=== PATIENT | male | born 1945 | race Caucasian/White ===

== ENCOUNTER 2017-10-05 08:46 | Inpatient (IN) ==
[2017-10-05] MEDS ORDERED: 0.9 % Sodium Chloride 1,000 ML IVC ONE ×2 (08:51→10:43)
--- NOTE | 2017-10-05 09:01 | Emergency Department Note ---
Disposition Clinical Impression: Hyponatremia, Hypochloremia, Lightheadedness, Weakness Acute kidney failure Qualifiers: Acute renal failure type: unspecified Qualified Code(s): N17.9 - Acute kidney failure, unspecified Disposition: Admitted As Inpatient Condition: Good Referrals: Thanh Babin DO [Primary Care Provider] - Forms: ED Satisfaction Letter Time of Disposition: 13:02 Nausea/Vomiting/Diarrhea HPI - General Chief complaint: ED Nausea/Vomiting/Diarrhea Stated complaint: dizziness, N/V Time Seen by Provider: 10/05/17 08:51 Nursing Notes Reviewed: Yes - History of Present Illness HPI Narrative: Mr. Reina, 71-year-old male, presents from home via EMS for evaluation of a 2 day history of nausea and vomiting (nonbilious, nonbloody). Patient has been unable to keep down any food or fluids x2d. Associated with lightheadedness onset yesterday morning, worse when standing. He has had subjective fevers. He was at home by himself and has had no sick contacts. Per EMS, orthostatics on seen were negative. Patient received 4 mg sublingual Zofran in route. Per patient this has improved his nausea. PMH: Hypertension, stent in left leg. No history of CAD, ACS, COPD. No history of CVA or TIA. Platelets: Aspirin 81 by mouth daily Anticoagulant: None ROS: Positive: As above Negative: Diarrhea, constipation, melena, hematochezia, chest pains, palpitations, dyspnea, diaphoresis, unusual back pain, falls. No chest pain, palpitations. - Related Data Home Medications Medication Instructions Recorded Confirmed Lisinopril [Zestril] 40 mg PO DAILY 08/16/17 10/05/17 Vit A/Vit C/Vit E/Zinc/Copper 1 tab PO DAILY 10/05/17 10/05/17 [Preservision Areds Tablet] Allergies Allergy/AdvReac Type Severity Reaction Status Date / Time acetaminophen [From Vicodin] AdvReac Nausea Verified 10/05/17 12:56 hydrocodone [From Vicodin] AdvReac Nausea Verified 10/05/17 12:56 rofecoxib [From Vioxx] AdvReac Nausea Verified 10/05/17 12:56 All systems ED: reviewed and negative except as stated. Review of Systems: As Per HPI Past Medical History - Past Medical History Medical history: Reports: non-contributory Surgical history: Reports: herniorrhaphy, orthopedic, other Psychiatric history: Reports: no psych history - Social History Smoking Status: Current every day smoker Smokeless Tobacco Status: No Alcohol use: Reports: none Drug use: Reports: none Physical Exam Vital Signs Reviewed General: Patient is alert, oriented, and in no acute distress. Head: atraumatic, normocephalic Eye: normal appearance, no scleral icterus, no conjunctival injection ENT: mucous membranes tacky, normal external ear exam Neck: normal inspection, trachea midline, full ROM Chest: normal inspection, symmetric chest rise Respiratory: Good respiratory effort. Bilateral breath sounds are clear without wheezing, crackles, or rhonchi. Cardiovascular: Regular rate and rhythm. No clicks, rubs, gallops, or murmors. Normal heart sounds. Abdomen: Scaphoid. Bowel sounds present normoactive x-4 quadrants. Abdomen is soft, nondistended, and nontender. No guarding or rebound. No organomegaly noted. Musculoskeletal: Spontaneously moving all extremities. Skin: warm, dry, intact. Neuro: Alert and oriented x4. Sensation light touch intact. Psych: Patient's affect is appropriate for situation. Course Course Narrative: EKG dated 10/05/12 at 08:53 interpreted as sinus rhythm with rate of 67. Normal intervals. Normal axis. Right bundle branch block. Nonspecific ST-T changes. Compared to previous dated 03/07/2013 showing no acute ischemic changes or comparison. 12:30 Patient was ambulated. He was symptomatic with light headedness upon sitting up to bedside. Without assistance on standing, he likely would have fallen. No change in HR during this evolution. The patient symptomatically has his nausea resolved, his lightheadedness continues. Lab work shows mild anemia. No previous comparisons for baseline. Given my initial suspicion for dehydration, suspected some hemoconcentration. He does have mild hyponatremia and hypochloremia. His serum osmolality is low which is not expected with dehydration. Additionally, he does have some acute kidney injury. Given that he continues to be lightheaded is not safe to go home , patient is agreement to admission for continued resuscitation. I discussed the patient be admitted to hospitalist, Dr. Corley, who accepts for continued evaluation and management. Vital Signs Temperature 97.9 F 10/05/17 08:50 Pulse Rate 66 10/05/17 08:50 Respiratory Rate 15 10/05/17 08:50 Blood Pressure 186/84 10/05/17 08:50 O2 Sat by Pulse Oximetry 97 10/05/17 08:50 Temperature 97.9 F 10/05/17 08:50 Pulse Rate 72 10/05/17 12:41 Respiratory Rate 18 10/05/17 11:41 Blood Pressure 164/74 10/05/17 12:41 O2 Sat by Pulse Oximetry 96 10/05/17 11:41 Oxygen Delivery Oxygen Delivery Room Air Nausea/Vomiting/Diarrhea - Lab Data Result diagrams: 10/05/17 09:01 10/05/17 09:01 Lab Results 10/05/17 10/05/17 10/05/17 Range/Units 09:01 09:01 10:40 WBC 7.1 (4.3-11.1) K/mcL RBC 3.37 L (4.19-5.50) M/mcL Hgb 11.8 L (12.9-16.9) g/dL Hct 32.7 L (37.5-50.1) % MCV 97.0 (83.0-100.0) fL MCH 35.0 H (28.0-33.3) pg MCHC 36.1 H (31.6-35.5) g/dL RDW 13.6 (11.5-14.5) % Plt Count 216 (140-400) K/mcL MPV 10.5 (9.4-12.4) fL Immature Gran % 0.3 (0-4) % Seg Neutrophils % 75.3 % Lymphocytes % 10.0 % Monocytes % 14.3 % Eosinophils % 0.0 % Basophils % 0.1 % Neutrophils # 5.4 (1.6-8.9) K/mcL Lymphocytes # 0.7 (0.6-4.6) K/mcL Monocytes # 1.0 (0.0-1.3) K/mcL Eosinophils # 0.0 (0.0-0.6) K/mcL Basophils # 0.0 (0.0-0.2) K/mcL Nucleated RBCs/100 WBC 0.3 H (0) /100 WBC Sodium 131 L (136-145) mEq/L Potassium 4.1 (3.5-5.1) mEq/L Chloride 94 L (98-107) mEq/L Carbon Dioxide 26 (23-29) mEq/L BUN 26 H (8-23) mg/dL Creatinine 1.46 H (0.70-1.30) mg/dL Est GFR ( Amer) 58 L (> 60) Est GFR (Non-Af Amer) 48 L (> 60) BUN/Creatinine Ratio 18 (6-26) Glucose 136 H (70-105) mg/dL Calculated Osmolality 279 L (280-300) Calcium 9.2 (8.6-10.3) mg/dL Total Bilirubin 0.9 (0.3-1.0) mg/dL Direct Bilirubin 0.3 H (0.0-0.2) mg/dL Indirect Bilirubin 0.6 (0.0-1.2) mg/dL AST 20 (13-39) Units/L ALT 12 (7-52) Units/L Alkaline Phosphatase 63 (34-104) Units/L Serum Total Protein 7.0 (6.4-8.9) g/dL Albumin 4.2 (3.5-5.7) g/dL Globulin 2.8 (2.4-3.5) g/dL Albumin/Globulin Ratio 1.5 (1.1-2.2) Lipase 66 (11-82) Units/L Urine Color Yellow (Yellow) Urine Clarity Clear (Clear) Urine pH 7.0 (5.0-8.0) pH Units Ur Specific [place] 1.017 (1.010-1.025) Urine Protein Trace (Neg-Trace) mg/dL Urine Glucose (UA) Normal (Normal) mg/dL Urine Ketones Trace H (Negative) mg/dL Urine Blood Negative (Negative) Urine Nitrite Negative (Negative) Urine Bilirubin Negative (Negative) Urine Urobilinogen Normal (Normal) mg/dL Ur Leukocyte Esterase Negative (Negative) Urine Microscopic RBC 0-3 (0-3) per hpf Urine Microscopic WBC 3-5 H (0-3) per hpf Urine Bacteria Few (None-Few) per hpf Ur Culture Indicated? NO (NO) Attestation Statement - Attestation Attestation: I, Zurdo Hill DO, examined this patient [id number] and my medical decision-making was reviewed with Dr. Natalio Santiago, Resident Physician. I agree with the documented findings, disposition and treatment plan as described except to the extent set forth below. Please see my progress notes for details. NIH Stroke Scale - Level of Consciousness LOC: Alert - LOC Questions LOC Questions: Answers both correctly - LOC Commands LOC Commands: Performs both correctly - Best Gaze Best Gaze: Normal - Visual Visual: No visual loss - Facial Palsy Facial Palsy: Normal - Motor Arms Motor Arm-Left: No drift for 10 seconds Motor Arm-Right: No drift for 10 seconds - Motor Legs Motor Leg-Left: No drift for 5 seconds Motor Leg-Right: No drift for 5 seconds - Limb Ataxia Limb Ataxia: Absent of affected limb too weak to perform exam - Sensory Sensory: Normal - Best Language Best Language: No aphasia - Dysarthria Dysarthria: Normal - Extinction and Inattention Extinction and Inattention: Normal - NIHSS Total Score NIHSS Total Score: 0
[2017-10-05 09:11] LABS: Basophils % 0.1 %; Hematocrit 32.7 % (37.5-50.1); Hemoglobin 11.8 g/dL (12.9-16.9); Immature Granulocytes % 0.3 % (0-4); Lymphocytes # 0.7 K/mcL (0.6-4.6); Mean Corpuscular HGB Conc 36.1 g/dL (31.6-35.5); Mean Platelet Volume 10.5 fL (9.4-12.4); Monocytes % 14.3 %; Neutrophils # 5.4 K/mcL (1.6-8.9); Nucleated Red Blood Cells 0.3 /100 WBC (0); Platelet Count 216 K/mcL (140-400); Red Blood Count 3.37 M/mcL (4.19-5.50); Red Cell Distribution Width 13.6 % (11.5-14.5); Segmented Neutrophils % 75.3 %
[2017-10-05 09:34] LABS: Albumin 4.2 g/dL (3.5-5.7); Albumin/Globulin Ratio 1.5 (1.1-2.2); Bilirubin,Direct 0.3 mg/dL (0.0-0.2); Bilirubin,Indirect 0.6 mg/dL (0.0-1.2); Bilirubin,Total 0.9 mg/dL (0.3-1.0); Calcium 9.2 mg/dL (8.6-10.3); Globulin 2.8 g/dL (2.4-3.5); Potassium 4.1 mEq/L (3.5-5.1)
[2017-10-05] MEDS ORDERED: Ondansetron 4 MG/2 ML VIAL IVP ONE (10:43)
[2017-10-05 10:51] LABS: Bilirubin,Urine Negative (Negative); Blood,Urine Negative (Negative); Clarity,Urine Clear (Clear); Color,Urine Yellow (Yellow); Glucose,Urine (UA) Normal (Normal); Ketones,Urine Trace mg/dL (Negative); Leukocyte Esterase,Urine Negative (Negative); Nitrite,Urine Negative (Negative); Protein,Urine Trace mg/dL (Neg-Trace); Specific Gravity,Urine 1.017 (1.010-1.025); Urobilinogen,Urine Normal (Normal)
[2017-10-05 11:12] LABS: RBC,Urine 0-3 per hpf (0-3)
[2017-10-05 11:13] LABS: Bacteria,Urine Few per hpf (None-Few)
--- NOTE | 2017-10-05 12:28 | Emergency Department Note ---
Disposition Clinical Impression: Hyponatremia, Hypochloremia, Lightheadedness, Weakness Acute kidney failure Qualifiers: Acute renal failure type: unspecified Qualified Code(s): N17.9 - Acute kidney failure, unspecified Disposition: Admitted As Inpatient Condition: Good Referrals: Thanh Babin DO [Primary Care Provider] - Forms: ED Satisfaction Letter Time of Disposition: 13:11 General Adult HPI - General Chief complaint: ED Nausea/Vomiting/Diarrhea Stated complaint: dizziness, N/V Time Seen by Provider: 10/05/17 08:51 Source: patient, family, EMS Limitations: no limitations - History of Present Illness Pain Scale: 0 - Related Data Home Medications Medication Instructions Recorded Confirmed Lisinopril [Zestril] 40 mg PO DAILY 08/16/17 10/05/17 Vit A/Vit C/Vit E/Zinc/Copper 1 tab PO DAILY 10/05/17 10/05/17 [Preservision Areds Tablet] Allergies Allergy/AdvReac Type Severity Reaction Status Date / Time acetaminophen [From Vicodin] AdvReac Nausea Verified 10/05/17 12:56 hydrocodone [From Vicodin] AdvReac Nausea Verified 10/05/17 12:56 rofecoxib [From Vioxx] AdvReac Nausea Verified 10/05/17 12:56 Past Medical History - Past Medical History Medical history: Reports: non-contributory Surgical history: Reports: herniorrhaphy, orthopedic, other Psychiatric history: Reports: no psych history - Social History Smoking Status: Current every day smoker Smokeless Tobacco Status: No Alcohol use: Reports: none Drug use: Reports: none Physical Exam - General Limitations: no limitations General appearance: alert, in no apparent distress Course Vital Signs Temperature 97.9 F 10/05/17 08:50 Pulse Rate 66 10/05/17 08:50 Respiratory Rate 15 10/05/17 08:50 Blood Pressure 186/84 10/05/17 08:50 O2 Sat by Pulse Oximetry 97 10/05/17 08:50 Temperature 97.9 F 10/05/17 08:50 Pulse Rate 72 10/05/17 12:41 Respiratory Rate 18 10/05/17 11:41 Blood Pressure 164/74 10/05/17 12:41 O2 Sat by Pulse Oximetry 96 10/05/17 11:41 Oxygen Delivery Oxygen Delivery Room Air Medical Decision Making - Lab Data Result diagrams: 10/05/17 09:01 10/05/17 09:01 Lab Results 10/05/17 10/05/17 10/05/17 Range/Units 09:01 09:01 10:40 WBC 7.1 (4.3-11.1) K/mcL RBC 3.37 L (4.19-5.50) M/mcL Hgb 11.8 L (12.9-16.9) g/dL Hct 32.7 L (37.5-50.1) % MCV 97.0 (83.0-100.0) fL MCH 35.0 H (28.0-33.3) pg MCHC 36.1 H (31.6-35.5) g/dL RDW 13.6 (11.5-14.5) % Plt Count 216 (140-400) K/mcL MPV 10.5 (9.4-12.4) fL Immature Gran % 0.3 (0-4) % Seg Neutrophils % 75.3 % Lymphocytes % 10.0 % Monocytes % 14.3 % Eosinophils % 0.0 % Basophils % 0.1 % Neutrophils # 5.4 (1.6-8.9) K/mcL Lymphocytes # 0.7 (0.6-4.6) K/mcL Monocytes # 1.0 (0.0-1.3) K/mcL Eosinophils # 0.0 (0.0-0.6) K/mcL Basophils # 0.0 (0.0-0.2) K/mcL Nucleated RBCs/100 WBC 0.3 H (0) /100 WBC Sodium 131 L (136-145) mEq/L Potassium 4.1 (3.5-5.1) mEq/L Chloride 94 L (98-107) mEq/L Carbon Dioxide 26 (23-29) mEq/L BUN 26 H (8-23) mg/dL Creatinine 1.46 H (0.70-1.30) mg/dL Est GFR ( Amer) 58 L (> 60) Est GFR (Non-Af Amer) 48 L (> 60) BUN/Creatinine Ratio 18 (6-26) Glucose 136 H (70-105) mg/dL Calculated Osmolality 279 L (280-300) Calcium 9.2 (8.6-10.3) mg/dL Total Bilirubin 0.9 (0.3-1.0) mg/dL Direct Bilirubin 0.3 H (0.0-0.2) mg/dL Indirect Bilirubin 0.6 (0.0-1.2) mg/dL AST 20 (13-39) Units/L ALT 12 (7-52) Units/L Alkaline Phosphatase 63 (34-104) Units/L Serum Total Protein 7.0 (6.4-8.9) g/dL Albumin 4.2 (3.5-5.7) g/dL Globulin 2.8 (2.4-3.5) g/dL Albumin/Globulin Ratio 1.5 (1.1-2.2) Lipase 66 (11-82) Units/L Urine Color Yellow (Yellow) Urine Clarity Clear (Clear) Urine pH 7.0 (5.0-8.0) pH Units Ur Specific [place] 1.017 (1.010-1.025) Urine Protein Trace (Neg-Trace) mg/dL Urine Glucose (UA) Normal (Normal) mg/dL Urine Ketones Trace H (Negative) mg/dL Urine Blood Negative (Negative) Urine Nitrite Negative (Negative) Urine Bilirubin Negative (Negative) Urine Urobilinogen Normal (Normal) mg/dL Ur Leukocyte Esterase Negative (Negative) Urine Microscopic RBC 0-3 (0-3) per hpf Urine Microscopic WBC 3-5 H (0-3) per hpf Urine Bacteria Few (None-Few) per hpf Ur Culture Indicated? NO (NO) Attestation Statement - Attestation Attestation: I, Zurdo Hill DO, examined this patient [id number] and my medical decision-making was reviewed with Dr. Natalio Santiago, Resident Physician. I agree with the documented findings, disposition and treatment plan as described except to the extent set forth below. Please see my progress notes for details. 71-year-old male presents to the emergency room with complaint of lightheadedness and generalized weakness. Patient has had these symptoms on and off for several days. He has not been eating and drinking his normal. Patient denies any fevers or chills chest pain shortness of breath headache vision changes no or diarrhea. Patient has had persistent nausea vomiting over the last 3 days. Every time he goes to eat something he feels like he gets nauseous. Patient denies any trauma or injury. He has no medication changes or other symptoms. Vital signs on presentation unremarkable patient's heart rate and blood pressure were normal. Patient is asymptomatic on initial presentation to the bedside. Head is atraumatic pupils are equal round reactive to ocular muscles are intact. Patient's cranial nerves III through XII are grossly intact oropharynx is patent his mucous membranes are slightly dry. Patient is described lightheadedness every time he gets up to start walking around. While sitting in his chair resting he has no symptoms. Patient is concerning for dehydration secondary to the nausea and vomiting. Screening labs including CBC chemistry liver function testing lipase will be ordered. Patient does not require any imaging initially this time. EKG was collected. Fluid resuscitation will be started repeat evaluation will be completed. Vital signs are then reviewed. Patient was symptomatic treatment started at this time. She detailed documentation of the physical exam, medical intervention, medical decision-making and disposition in the resident physician' s note. No critical care provider is patient treatment course this time. 1225 Patient is feeling better. His nausea is completely resolved. His lightheadedness is better this time. Labs appear to be unremarkable. EKG workup did not show any acute pathology. Patient attempted to ambulate around the emergency room and still felt significant weakness to where his legs felt like they are going to give out from underneath him. Because of this is determined that the patient is too unsteady to go home. We will continue fluid resuscitation. Will check a CT of his head and chest x-ray to rule out any other potential etiology and order an influenza swab. Patient otherwise is in no apparent distress while sitting in the bed he does not require any aggressive or medical intervention at this point. Disposition pending workup and treatment course. 1255 Patient ambulated around the emergency room but still had weakness. He had no lightheadedness or nausea. Admission process to be completed
[2017-10-05] MEDS ORDERED: Naloxone 0.4 MG/ML INJ IVP PRN ×2 (13:56→13:57)
[2017-10-05] MEDS ORDERED: traMADol 50 MG TABLET PO PRN (13:57)
[2017-10-05] MEDS ORDERED: Acetaminophen 325 MG TABLET PO PRN (13:57)
[2017-10-05] MEDS ORDERED: Lisinopril 20 MG TABLET PO SCH (14:00)
--- NOTE | 2017-10-05 14:14 | Internal Med History&Physical ---
<Elio Corley - Last Filed: 10/05/17 15:09> Date of Encounter: 10/05/17 Time of Encounter: 14:01 Internal Medicine - H&P: HPI Admitted From: Home Plans for Post Hospital Care: Home History of present illness: 71-year-old male presents to the emergency room with complaint of lightheadedness and generalized weakness. Patient has had these symptoms on and off for several days. He has not been eating and drinking his normal. Patient denies any fevers or chills chest pain shortness of breath headache vision changes no or diarrhea. Patient has had persistent nausea vomiting over the last 3 days. Every time he goes to eat something he feels like he gets nauseous. Patient denies any trauma or injury. He has no medication changes or other symptoms. Vital signs on presentation unremarkable patient's heart rate and blood pressure were normal. At the ED, patient was found to have elevated blood pressure. Chest x-ray and CT head did not reveal any abnormalities. Due to dehydration, patient will be admitted for further management. Past Med Surg Social Fam HX - Past Medical History Medical history: non-contributory Psychiatric history: no psych history - Past Surgical History Surgical History: herniorrhaphy, orthopedic, other - Social History Smoking Status: Current every day smoker Smokeless Tobacco Status: No Alcohol use: none Drug use: none Internal Medicine - H&P: Meds Lisinopril [Zestril] 40 mg PO DAILY 08/16/17 [History] Vit A/Vit C/Vit E/Zinc/Copper [Preservision Areds Tablet] 1 tab PO DAILY [History] 3 Allergy/AdvReac Type Severity Reaction Status Date / Time acetaminophen [From Vicodin] AdvReac Nausea Verified 10/05/17 12:56 hydrocodone [From Vicodin] AdvReac Nausea Verified 10/05/17 12:56 rofecoxib [From Vioxx] AdvReac Nausea Verified 10/05/17 12:56 All Systems PM: A 10-system review of systems was performed and is negative for pertinent findings except as documented above in the HPI. Review of systems: REVIEW OF SYSTEMS: CONSTITUTIONAL: No weight loss, fever, chills, weakness or fatigue. HEENT: Eyes: No visual loss, blurred vision, double vision or yellow sclerae. Ears, Nose, Throat: No hearing loss, sneezing, congestion, runny nose or sore throat. SKIN: No rash or itching. CARDIOVASCULAR: No chest pain, chest pressure or chest discomfort. No palpitations or edema. RESPIRATORY: No shortness of breath, cough or sputum. GASTROINTESTINAL: see HPI. GENITOURINARY: No dysuria, urgency, or frequency. NEUROLOGICAL: No headache, dizziness, syncope, paralysis, ataxia, numbness or tingling in the extremities. No change in bowel or bladder control. MUSCULOSKELETAL: No muscle, back pain, joint pain or stiffness. HEMATOLOGIC: No anemia, bleeding or bruising. LYMPHATICS: No enlarged nodes. No history of splenectomy. PSYCHIATRIC: No history of depression or anxiety. ENDOCRINOLOGIC: No reports of sweating, cold or heat intolerance. No polyuria or polydipsia. - Constitutional Vitals: Temp Pulse Resp BP Pulse Ox 97.9 F 72 18 164/74 96 10/05/17 08:50 10/05/17 12:41 10/05/17 11:41 10/05/17 12:41 10/05/17 11:41 General appearance: Present: A&O X 3 Exam: PHYSICAL EXAMINATION: GENERAL APPEARANCE: The patient is alert, oriented and in no acute distress. HEENT: Head is normocephalic. The sinuses are nontender. Pupils are equal and reactive. The nares are patent. Oropharynx clear without lesions. NECK: Supple without lymphadenopathy. HEART: Regular rate and rhythm. LUNGS: No crackles or wheezes are heard. ABDOMEN: Soft, nontender, nondistended with good bowel sounds heard. Inguinal area is normal. EXTREMITIES: Without cyanosis, clubbing or edema. NEUROLOGICAL: Gross nonfocal. SKIN: Warm and dry without any rash. Internal Med - H&P Results - Labs CBC & Chem 7: 10/05/17 09:01 10/05/17 09:01 - Assessment and plan (1) Lightheadedness Current Visit: Yes Status: Acute Assessment and plan: - 71-year-old male presented with acute abdominal symptoms, poor by mouth intake in the last 3 days. Lightheadedness likely is a symptoms of dehydration. - Continue IV fluid. (2) Acute kidney failure Current Visit: Yes Status: Acute Assessment and plan: - Most likely prerenal, continue IV fluid, repeat BMP in the morning. Qualifiers: Acute renal failure type: unspecified Qualified Code(s): N17.9 - Acute kidney failure, unspecified (3) Hypochloremia Current Visit: Yes Status: Acute Assessment and plan: - Continue IV fluid with normal saline, repeat a BMP in the morning. (4) Hyponatremia Current Visit: Yes Status: Acute Assessment and plan: - Continue normal saline, repeat BMP in the morning. (5) Hypertension Current Visit: No Status: Chronic Assessment and plan: - Hold lisinopril due to [place], hydralazine as necessary. Qualifiers: Hypertension type: essential hypertension Qualified Code(s): I10 - Essential (primary) hypertension (6) Abdominal pain Current Visit: Yes Status: Acute Assessment and plan: - Diffuse abdominal pain without guarding or rebound, normal lipase, pending CT abdomen. - Positive care, continue IV fluid. Qualifiers: Abdominal location: unspecified location Qualified Code(s): R10.9 - Unspecified abdominal pain - Time Spent With Patient Total time spent is greater than 50% in coordination of care (as documented) at patient's floor/unit and/or counseling patient: Greater than 35 minutes <Bell Anderson - Last Filed: 10/05/17 15:49> Date of Encounter: 10/05/17 Internal Medicine - H&P: HPI History of present illness: Mr. Reina is a 71 year old male All Systems PM: A 10-system review of systems was performed and is negative for pertinent findings except as documented above in the HPI. - Constitutional Vitals: Temp Pulse Resp BP Pulse Ox 98.7 F 59 18 197/52 96 10/05/17 14:12 10/05/17 14:12 10/05/17 14:12 10/05/17 14:12 10/05/17 11:41 Internal Med - H&P Results - Labs CBC & Chem 7: 10/05/17 09:01 10/05/17 09:01 - Attending Attestation Examination the patient review the note. Patient had lightheadedness followed by presyncope episode with blurred was done and dizziness followed by a nausea vomiting but denies slurred speech tingling numbness or focal weakness. Patient never had a CVA or cardiac workup in the past. History of chronic smoking, hypertension. CT brain with no acute finding but remote lacunar infarct in left basal ganglia. At present patient is still feel very unsteady in gait and has fear of fall. Patient need stroke evaluation therefore MRI brain, echocardiogram, carotid ultrasound and troponin 2 ordered. Fasting lipid profile also ordered. Baby aspirin is started. Fall precaution, speech evaluation for swallow study and neuro check and telemetry started. - Assessment and plan (1) Acute kidney failure Current Visit: Yes Status: Acute Qualifiers: Qualified Code(s): N17.9 - Acute kidney failure, unspecified (2) Hyponatremia Current Visit: Yes Status: Acute (3) Hypochloremia Current Visit: Yes Status: Acute (4) Lightheadedness Current Visit: Yes Status: Acute (5) Hypertension Current Visit: No Status: Chronic Qualifiers: Qualified Code(s): I10 - Essential (primary) hypertension (6) Abdominal pain Current Visit: Yes Status: Acute Qualifiers: Qualified Code(s): R10.9 - Unspecified abdominal pain - Time Spent With Patient Total time spent is greater than 50% in coordination of care (as documented) at patient's floor/unit and/or counseling patient:
[2017-10-05] MEDS: 0.9 % Sodium Chloride 1,000 ML IVC SCH (15:35)
[2017-10-05 16:40] LABS: Chol/HDL Ratio 2.5 (0-4.9)
[2017-10-05] MEDS: *HR* Heparin 5,000 UNIT/ML VIAL SQ SCH (18:05)
[2017-10-06] MEDS: 0.9 % Sodium Chloride 1,000 ML IVC SCH ×2 (01:14→21:55)
[2017-10-06 05:14] LABS: Hematocrit 30.5 % (37.5-50.1); Hemoglobin 10.7 g/dL (12.9-16.9); Mean Corpuscular HGB Conc 35.1 g/dL (31.6-35.5); Mean Corpuscular Hemoglobin 34.6 pg (28.0-33.3); Mean Corpuscular Volume 98.7 fL (83.0-100.0); Mean Platelet Volume 10.9 fL (9.4-12.4); Platelet Count 188 K/mcL (140-400); Red Blood Count 3.09 M/mcL (4.19-5.50)
[2017-10-06 05:32] LABS: Alanine Aminotransferase 14 Units/L (7-52); Albumin 3.5 g/dL (3.5-5.7); Albumin/Globulin Ratio 1.6 (1.1-2.2); Alkaline Phosphatase 56 Units/L (34-104); Aspartate Amino Transferase 30 Units/L (13-39); BUN/Creatinine Ratio 18 (6-26); Bilirubin,Total 0.8 mg/dL (0.3-1.0); Blood Urea Nitrogen 20 mg/dL (8-23); Calcium 8.3 mg/dL (8.6-10.3); Carbon Dioxide 23 mEq/L (23-29); Chloride 102 mEq/L (98-107); Globulin 2.2 g/dL (2.4-3.5); Glucose 89 mg/dL (70-105); Osmolality,Calculated 276 (280-300); Potassium 3.6 mEq/L (3.5-5.1); Sodium 132 mEq/L (136-145); Total Protein 5.7 g/dL (6.4-8.9); eGFR For African Americans > 60 (> 60); eGFR For Non-African Americans > 60 (> 60)
[2017-10-06] MEDS: *HR* Heparin 5,000 UNIT/ML VIAL SQ SCH ×2 (06:06→16:23)
[2017-10-06] MEDS: Multivit/Ca/Min/Fe/FA 1 TAB TABLET PO SCH (07:57)
[2017-10-06] MEDS: Aspirin Enteric Coated 81 MG Tablet PO SCH (07:57)
[2017-10-06] MEDS ORDERED: 0.9 % Sodium Chloride 1,000 ML IVC ONE (14:20)
[2017-10-06] MEDS: Lisinopril 20 MG TABLET PO SCH (15:15)
--- NOTE | 2017-10-06 22:05 | Internal Med Progress Note ---
Date of Encounter: 10/06/17 Time of Encounter: 15:17 - Assessment and plan (1) Lightheadedness Current Visit: Yes Status: Acute Assessment and plan: Improved, but still with symptoms when up and walking. I have walked him today , and he seems to have ataxic gait. He has no focal neurological deficits. 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 Concerning for possible cerebellar TIA. Carotid duplex exam showed 60-79% severe stenosis of right distal ICA. Only significant lab abnormality is mildly decreased sodium. Continue gentle hydration with IV NS. Recheck labwork in AM. Will consult neurology, vascular surgery, and PT/OT. (2) Acute kidney failure Current Visit: Yes Status: Resolved Assessment and plan: Resolved. MILTON, most likely prerenal. Continue IVF as per above. Recheck BMP in AM. Qualifiers: Acute renal failure type: unspecified Qualified Code(s): N17.9 - Acute kidney failure, unspecified (3) Hyponatremia Current Visit: Yes Status: Acute Assessment and plan: Mild and improved. Continue IVF as per above. Recheck BMP in AM. (4) Hypochloremia Current Visit: Yes Status: Resolved Assessment and plan: Resolved. Continue IVF as per above. Recheck BMP in AM. (5) Hypertension Current Visit: No Status: Chronic Assessment and plan: Mildly elevated. Restarted home lisinopril since MILTON resolved. Continue hydralazine PRN. Qualifiers: Hypertension type: essential hypertension Qualified Code(s): I10 - Essential (primary) hypertension (6) Abdominal pain Current Visit: Yes Status: Resolved Assessment and plan: Resolved. Qualifiers: Abdominal location: unspecified location Qualified Code(s): R10.9 - Unspecified abdominal pain (7) DVT prophylaxis Current Visit: Yes Status: Acute Assessment and plan: Continue SQ heparin. - Time Spent With Patient Total time spent is greater than 50% in coordination of care (as documented) at patient's floor/unit and/or counseling patient: 25 - 35 minutes - Subjective Interval history: Patient had no acute events overnight. is in room today and states that patient is still confused and "not his normal self." Patient states that he is feeling fine. He still has some lightheadedness when he gets up. I observed patient walk and he is unsteady on his feet; seem to have an ataxic gait. He denies headache, focal neurological deficits, chest pain, SOB, fever, chills, nausea, or vomiting. He denies vertigo. He has no complaints. - Constitutional Vitals: Temp Pulse Resp BP Pulse Ox 98.2 F 102 18 151/75 95 10/06/17 19:17 10/06/17 22:02 10/06/17 19:17 10/06/17 22:02 10/06/17 19:17 General appearance: Present: cooperative, A&O X 3, pleasant, no acute distress, answers questions appropriately - Eye Eye exam: Present: EOMI, PERRL. Absent: conjunctival injection, nystagmus, scleral icterus - Respiratory Respiratory exam: Present: CTAB. Absent: accessory muscle use, rales, rhonchi, wheezes Additional comments: Normal WOB - Cardiovascular Cardiovascular exam: Present: RRR, +S1, +S2. Absent: diastolic murmur, gallop, rubs, systolic murmur Additional comments: No BLE edema - GI/Abdominal GI/Abdominal exam: Present: normal bowel sounds, soft. Absent: distended, hepatomegaly, mass, splenomegaly, tenderness - Neurological Exam Neurological exam: Present: abnormal gait, alert, CN II-XII intact, oriented X3 , no focal deficits, strengths equal and symetr throughout. Absent: motor sensory deficit, facial droop, speech deficit - Psychiatric Psychiatric exam: Present: normal affect, normal mood. Absent: agitated, anxious, depressed - Skin Skin exam: Present: dry, intact, warm. Absent: cyanosis, rash Internal Medicine: Result - Labs CBC & Chem 7: 10/06/17 04:22 10/06/17 04:22 Labs: Short CBC 10/06/17 Range/Units 04:22 WBC 8.2 (4.3-11.1) K/mcL Hgb 10.7 L (12.9-16.9) g/dL Hct 30.5 L (37.5-50.1) % Plt Count 188 (140-400) K/mcL BMP 10/06/17 04:22 Sodium 132 L Potassium 3.6 Chloride 102 Carbon Dioxide 23 BUN 20 Creatinine 1.09 Glucose 89 Calcium 8.3 L Cardiac Enzymes 10/05/17 Range/Units 21:28 Troponin I < 0.03 (< 0.04) ng/mL Liver Function 04/27/18 Range/Units 04:22 Total Bilirubin 0.8 (0.3-1.0) mg/dL AST 30 (13-39) Units/L ALT 14 (7-52) Units/L Alkaline Phosphatase 56 (34-104) Units/L Albumin 3.5 (3.5-5.7) g/dL - Impressions Impressions Echocardiogram 10/05/17 15:41 Impressions: LVEF 60%. Normal LV chamber size, wall thickness and function. Mild left ventricular diastolic dysfunction. Normal right ventricular structure and function. Unable to estimate RVSP due to lack of TR jet. No significant valvular dysfunction. Left Ventricular Wall Motion: Rest Echo Findings All wall segments showed normal motion. Findings: Study Quality * Technically adequate exam. ECG Findings * Normal sinus rhythm. Left Ventricle * LVEF 60%. * Normal LV chamber size, wall thickness and function. * Mild left ventricular diastolic dysfunction. Right Ventricle * Normal right ventricular structure and function. Left Atrium * Mildly dilated left atrium. Right Atrium * Normal right atrial size. Interatrial Septum * Interatrial septum not well evaluated. Aortic Valve * Aortic valve not well visualized. * No aortic regurgitation. * No aortic stenosis. Mitral Valve * Normal mitral valve structure and function. * No mitral stenosis. * No mitral regurgitation. Tricuspid Valve * Normal tricuspid valve structure and function. * No tricuspid regurgitation. * Unable to estimate RVSP due to lack of TR jet. Pulmonic Valve * Pulmonic valve not well visualized. * No pulmonic regurgitation. Aorta * Normally sized aortic root. Pericardium * The pericardium appears normal. IVC * Normal IVC dimensions and inspiratory collapse. Pulmonary Artery * Normal visualized portions of the main pulmonary artery. Consult Discharge Plan - Plan Referrals: Thanh Babin DO [Primary Care Provider] -
[2017-10-06] MEDS ORDERED: *HR* Metoprolol 5 MG/5 ML VIAL IVP STA (22:25)
[2017-10-07 03:52] LABS: Basophils % 0.3 %; Eosinophils # 0.1 K/mcL (0.0-0.6); Eosinophils % 0.7 %; Hematocrit 31.8 % (37.5-50.1); Hemoglobin 11.2 g/dL (12.9-16.9); Immature Granulocytes % 0.4 % (0-4); Lymphocytes # 2.2 K/mcL (0.6-4.6); Lymphocytes % 22.8 %; Mean Corpuscular HGB Conc 35.2 g/dL (31.6-35.5); Mean Corpuscular Hemoglobin 34.6 pg (28.0-33.3); Mean Corpuscular Volume 98.1 fL (83.0-100.0); Mean Platelet Volume 10.3 fL (9.4-12.4); Monocytes # 1.1 K/mcL (0.0-1.3); Monocytes % 11.6 %; Neutrophils # 6.2 K/mcL (1.6-8.9); Platelet Count 188 K/mcL (140-400); Red Blood Count 3.24 M/mcL (4.19-5.50); Red Cell Distribution Width 13.6 % (11.5-14.5); Segmented Neutrophils % 64.2 %
[2017-10-07 04:09] LABS: BUN/Creatinine Ratio 16 (6-26); Blood Urea Nitrogen 18 mg/dL (8-23); Calcium 8.5 mg/dL (8.6-10.3); Carbon Dioxide 24 mEq/L (23-29); Chloride 100 mEq/L (98-107); Glucose 91 mg/dL (70-105); Osmolality,Calculated 269 (280-300); Potassium 3.7 mEq/L (3.5-5.1); Sodium 129 mEq/L (136-145); eGFR For African Americans > 60 (> 60); eGFR For Non-African Americans > 60 (> 60)
[2017-10-07] MEDS: *HR* Heparin 5,000 UNIT/ML VIAL SQ SCH ×2 (06:13→17:03)
[2017-10-07] MEDS: Lisinopril 20 MG TABLET PO SCH (08:30)
[2017-10-07] MEDS: Aspirin Enteric Coated 81 MG Tablet PO SCH (08:31)
[2017-10-07] MEDS: Multivit/Ca/Min/Fe/FA 1 TAB TABLET PO SCH (08:31)
--- NOTE | 2017-10-07 11:15 | Internal Med Progress Note ---
Date of Encounter: 10/07/17 Time of Encounter: 11:12 - Assessment and plan (1) Lightheadedness Current Visit: Yes Status: Acute Assessment and plan: Improved, but still with symptoms when up and walking. He has no focal neurological deficits. 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 Concerning for possible cerebellar TIA. Carotid duplex exam showed 60-79% severe stenosis of right distal ICA. Only significant lab abnormality is mildly decreased sodium. Continue gentle hydration with IV NS. Recheck labwork in AM. I have consulted neurology, vascular surgery, and PT/OT. I spoke with neurologist Dr. Bacon today, who states that he will see patient. (2) Acute kidney failure Current Visit: Yes Status: Resolved Assessment and plan: Resolved. MILTON, most likely prerenal. Continue IVF as per above. Recheck BMP in AM. Qualifiers: Acute renal failure type: unspecified Qualified Code(s): N17.9 - Acute kidney failure, unspecified (3) Hyponatremia Current Visit: Yes Status: Acute Assessment and plan: Mild and slightly worsened today. Continue IVF as per above. Continue fluid restriction diet. Recheck BMP in AM. (4) Hypochloremia Current Visit: Yes Status: Resolved Assessment and plan: Resolved. Continue IVF as per above. Recheck BMP in AM. (5) Hypertension Current Visit: Yes Status: Chronic Assessment and plan: Better yesterday. Continue home lisinopril since MILTON resolved. Continue hydralazine PRN. Monitor vitals closely. Qualifiers: Hypertension type: essential hypertension Qualified Code(s): I10 - Essential (primary) hypertension (6) Abdominal pain Current Visit: Yes Status: Resolved Assessment and plan: Resolved. Qualifiers: Abdominal location: unspecified location Qualified Code(s): R10.9 - Unspecified abdominal pain (7) DVT prophylaxis Current Visit: Yes Status: Acute Assessment and plan: Continue SQ heparin. - Time Spent With Patient Total time spent is greater than 50% in coordination of care (as documented) at patient's floor/unit and/or counseling patient: less than 15 minutes - Subjective Interval history: Patient had a run of AFib with RVR last night that improved with IV lopressor. Today, he states that he does have a history of Afib in the past. is in room today. Patient states that he is feeling "ok" except when he gets up or moves his head to the right; he then feels "dizzy." He denies vertigo. He denies headache, focal neurological deficits, chest pain, SOB, fever, chills, nausea, or vomiting. He has no other complaints. - Constitutional Vitals: Temp Pulse Resp BP Pulse Ox 98.3 F 57 15 160/78 94 10/07/17 08:36 10/07/17 08:36 10/07/17 08:36 10/07/17 08:36 10/07/17 08:36 General appearance: Present: cooperative, A&O X 3, pleasant, no acute distress, answers questions appropriately - Respiratory Respiratory exam: Present: CTAB. Absent: accessory muscle use, rales, rhonchi, wheezes Additional comments: Normal WOB - Cardiovascular Cardiovascular exam: Present: RRR, +S1, +S2. Absent: diastolic murmur, gallop, rubs, systolic murmur Additional comments: No BLE edema - GI/Abdominal GI/Abdominal exam: Present: normal bowel sounds, soft. Absent: distended, hepatomegaly, mass, splenomegaly, tenderness - Psychiatric Psychiatric exam: Present: normal affect, normal mood. Absent: agitated, anxious, depressed - Skin Skin exam: Present: dry, intact, warm. Absent: cyanosis, rash Internal Medicine: Result - Labs CBC & Chem 7: 10/07/17 03:34 10/07/17 03:34 Labs: Short CBC 10/07/17 Range/Units 03:34 WBC 9.7 (4.3-11.1) K/mcL Hgb 11.2 L (12.9-16.9) g/dL Hct 31.8 L (37.5-50.1) % Plt Count 188 (140-400) K/mcL Neutrophils # 6.2 (1.6-8.9) K/mcL BMP 10/07/17 03:34 Sodium 129 L Potassium 3.7 Chloride 100 Carbon Dioxide 24 BUN 18 Creatinine 1.14 Glucose 91 Calcium 8.5 L - Impressions Impressions Echocardiogram 10/05/17 15:41 Impressions: LVEF 60%. Normal LV chamber size, wall thickness and function. Mild left ventricular diastolic dysfunction. Normal right ventricular structure and function. Unable to estimate RVSP due to lack of TR jet. No significant valvular dysfunction. Left Ventricular Wall Motion: Rest Echo Findings All wall segments showed normal motion. Findings: Study Quality * Technically adequate exam. ECG Findings * Normal sinus rhythm. Left Ventricle * LVEF 60%. * Normal LV chamber size, wall thickness and function. * Mild left ventricular diastolic dysfunction. Right Ventricle * Normal right ventricular structure and function. Left Atrium * Mildly dilated left atrium. Right Atrium * Normal right atrial size. Interatrial Septum * Interatrial septum not well evaluated. Aortic Valve * Aortic valve not well visualized. * No aortic regurgitation. * No aortic stenosis. Mitral Valve * Normal mitral valve structure and function. * No mitral stenosis. * No mitral regurgitation. Tricuspid Valve * Normal tricuspid valve structure and function. * No tricuspid regurgitation. * Unable to estimate RVSP due to lack of TR jet. Pulmonic Valve * Pulmonic valve not well visualized. * No pulmonic regurgitation. Aorta * Normally sized aortic root. Pericardium * The pericardium appears normal. IVC * Normal IVC dimensions and inspiratory collapse. Pulmonary Artery * Normal visualized portions of the main pulmonary artery. Consult Discharge Plan - Plan Referrals: Thanh Babin DO [Primary Care Provider] -
[2017-10-07] MEDS: 0.9 % Sodium Chloride 1,000 ML IVC SCH (11:33)
--- NOTE | 2017-10-07 13:04 | Neurology - Consult Note ---
Date of Encounter: 10/07/17 Time of Encounter: 13:02 Assessment and Plan (1) Lightheadedness Current Visit: Yes Status: Acute This patient has developed nausea and repeat vomiting followed by generalized weakness without speech difficulty or focal neurological deficits, except some observed confusion, likely related to diffuse encephalopathy secondary to dehydration, and acute renal insufficiency. The symptoms have lasted more than 24 hours with rapid improvement with medical treatment therefore it is unlikely a true TIA. MRI of brain showed no stroke. The presence of right MAR stenosis of 60-79% is likely an incidental finding and such finding should not cause persistent vomiting, nausea without focal neurological deficits since it falls into the anterior circulation territory. Less likely posterior circulation TIA can cause such symptoms again this would be unlikely due to him having symptoms more than 24 to 48 hours with rapid improvement upon medical treatment. There also may be a component of BPPV to his balance difficulty related to turning head to the left side. At this time, i would suggest obtain MRA of neck and brain, and continue medical and supportive care. If MRA of neck confirms the presence of right ICA stenosis then vascular surgery consultation may be helpful. however again, i do not feel this finding (right ICA stenosis) would be able to explain his clinical presentation. Thank you very much for consultation. T Total time spent on this patient/case is approximately 70 minutes. History of Present Illness Chief complaint: Vomiting, weakness and balance difficulty HPI: Mr. Reina is a 71 year old male with PMH significant for HTN, alcoholism, COPD CHF, who presented with nausea vomiting, generalized weakness and difficulty walking. Patient is interviewed in the presence of his . Patient was in his usual state of health 10/06/2015 at noon time he started feeling nauseated and then in the after he kept vomiting but did not seek medical help and when he got up he felt dizzy and lightheaded and thought he was going to get better but he did not. He went to bed and the secondary day he got up he was weak and went down on the floor and could not get up that was when he called the squad. Initial CT of head was unremarkable. MRI of brain showed no acute infarct but evidence of old infarct that he is unaware of. plus some chronic ischemic changes. He has no difficulty speaking, although his , after coming back from vacation noticed that he was somewhat confused.. No blurry vision and no diplopia. No speech difficulty now. Patient is feeling better, after aggressive hydration and medical treatment. Creatinine level normalized. Today he feels much better but when he got up this morning he still feels unsteady. He feels dizzy especially when turning his head to the left side. NO focal weakness reported. Past Med Surg Social Fam HX - Past Medical History Medical history: non-contributory Psychiatric history: no psych history - Past Surgical History Surgical History: herniorrhaphy, orthopedic, other - Social History Smoking Status: Current every day smoker Packs per day: 1 Smokeless Tobacco Status: No Alcohol use: none Drug use: none Medications and Allergies Lisinopril [Zestril] 40 mg PO DAILY 08/16/17 [History] Vit A/Vit C/Vit E/Zinc/Copper [Preservision Areds Tablet] 1 tab PO DAILY [History] 3 Allergy/AdvReac Type Severity Reaction Status Date / Time acetaminophen [From Vicodin] AdvReac Nausea Verified 10/05/17 12:56 hydrocodone [From Vicodin] AdvReac Nausea Verified 10/05/17 12:56 rofecoxib [From Vioxx] AdvReac Nausea Verified 10/05/17 12:56 All Systems: The remainder of the systems were reviewed and are negative Physical Examination - Vital Signs Vital Signs: Initial Vital Signs Temp Pulse Resp BP Pulse Ox 97.9 F 66 15 186/84 97 10/05/17 08:50 10/05/17 08:50 10/05/17 08:50 10/05/17 08:50 10/05/17 08:50 - Constitutional General appearance: comfortable - Neurologic Sensorimotor examination: other (Grossly intact) Detailed motor examination: full strength in all major muscle groups Motor examination - right side: 5/5: deltoids, biceps, triceps, wrist flexion, wrist extension, account management specialist, hip flexors, tibialis Anterior, quadriceps, toe extension (EHL), plantarflexion Motor examination - left side: 5/5: deltoids, biceps, triceps, wrist flexion, wrist extension, hip flexors, account management specialist, quadriceps, tibialis Anterior, toe extension (EHL), plantarflexion Detailed sensory examination: other (None) Posture: other (NOne) Reflex and gait examination: other (Gait not assessed) Reflexes: Biceps: 2+, Triceps: 2+, Brachioradialis: 2+, Patella: 2+, Achilles: 2 + Mental Status Examination: awake, alert, oriented to person, oriented to place, oriented to time, follows commands appropriately, answers questions appropriately, no agnosia, no aphasia, no aproxia Cranial nerve examination: PERRL, EOMI (In particular, no nystagmus noted), visual mello intact, corneal reflexes brisk symmetrically, sensory to face intact, mastication intact, no facial asymmetry is present, no dysarthria, hearing is intact symmetrically, soft palate elevates bilaterally upon phonation , gag reflex intact, flexes SCM and trapezius muscles symmetrically with full power, tongue protrudes midline, no atrophy or facial fasiculations present Results - Laboratory Findings CBC and BMP: 10/07/17 03:34 10/07/17 03:34 Abnormal lab findings: Abnormal lab results RBC 3.24 M/mcL (4.19-5.50) L 10/07/17 03:34 Hgb 11.2 g/dL (12.9-16.9) L 10/07/17 03:34 Hct 31.8 % (37.5-50.1) L 10/07/17 03:34 MCH 34.6 pg (28.0-33.3) H 10/07/17 03:34 Nucleated RBCs/100 WBC 0.3 /100 WBC (0) H 10/05/17 09:01 Sodium 129 mEq/L (136-145) L 10/07/17 03:34 Calculated Osmolality 269 (280-300) L 10/07/17 03:34 Calcium 8.5 mg/dL (8.6-10.3) L 10/07/17 03:34 Direct Bilirubin 0.3 mg/dL (0.0-0.2) H 10/05/17 09:01 Serum Total Protein 5.7 g/dL (6.4-8.9) L 10/06/17 04:22 Globulin 2.2 g/dL (2.4-3.5) L 10/06/17 04:22 Urine Ketones Trace mg/dL (Negative) H 10/05/17 10:40 Urine Microscopic WBC 3-5 per hpf (0-3) H 10/05/17 10:40 - Diagnostic Findings Additional findings: CT/CT head/brain wo con IMPRESSION: 1. No acute intracranial process identified. 2. Remote lacunar infarct within the left basal ganglia. 3. Mild chronic small vessel ischemic changes. EV/EV echocardiogram Impressions: LVEF 60%. Normal LV chamber size, wall thickness and function. Mild left ventricular diastolic dysfunction. Normal right ventricular structure and function. Unable to estimate RVSP due to lack of TR jet. No significant valvular dysfunction. MR/MR head/brain wo con IMPRESSION: Multifocal small-vessel ischemic change bilaterally. Old infarct in the left caudate head region as described No acute infarct, mass or acute hemorrhage. Carotid artery duplex: Impressions: Findings: Right distal ICA has a severe, 60-79% stenosis. Consult Discharge Plan - Plan Referrals: Thanh Babin DO [Primary Care Provider] -
--- NOTE | 2017-10-07 13:58 | Vascular/Endovasc Consult Note ---
Date of Encounter: 10/07/17 Time of Encounter: 13:55 Assessment and Plan (1) Carotid stenosis, right Current Visit: Yes Status: Acute Asymptomatic right ICA stenosis - not high grade Will need serial duplexes to monitor for progression Follow up will be arranged with one of the vascular surgeons Smoking cessation discussed Lipid panel looks great. - History of Present Illness Consult date: 10/07/17 Requesting physician: Sumit Swanson Consult reason: Right ICA stenosis Chief complaint: nauseau, vomiting, dizziness History of present illness: Mr. Reina is a 71 year old male who presented yesterday with nauseau/vomiting and lightheadedness/dizziness of approximately 24 hour duration. Upon presentation to the ED, the patient was aggressively fluid resuscitated and a stroke workup initiated. Initial results were negative for an acute ischemic stroke. A carotid duplex did reveal a right ICA stenosis of 60-79%. Patient denies previous history of [place]/stroke. He denies claudication, rest pain or tissue loss. He denies any history of postprandial abdominal pain. He is a current smoker. Past Med Surg Social Fam HX - Past Medical History Medical history: non-contributory Psychiatric history: no psych history - Past Surgical History Surgical History: herniorrhaphy, orthopedic, other - Social History Smoking Status: Current every day smoker Packs per day: 1 Smokeless Tobacco Status: No Alcohol use: none Drug use: none Medications and Allergies Lisinopril [Zestril] 40 mg PO DAILY 08/16/17 [History] Vit A/Vit C/Vit E/Zinc/Copper [Preservision Areds Tablet] 1 tab PO DAILY [History] 3 Allergy/AdvReac Type Severity Reaction Status Date / Time acetaminophen [From Vicodin] AdvReac Nausea Verified 10/05/17 12:56 hydrocodone [From Vicodin] AdvReac Nausea Verified 10/05/17 12:56 rofecoxib [From Vioxx] AdvReac Nausea Verified 10/05/17 12:56 All Systems Review: The remainder of the systems were reviewed and are negative Pertinent positives/negatives were HPI Exam Vital Signs, Last 4 Hours Temp Pulse Resp BP Pulse Ox 10/07/17 11:47 98.0 F 59 16 161/77 95 General: Present: Conversant, No Apparent Distress Neck: Present: Right Carotid bruit Cardiac: Present: Reg Rate and Rhythm Lungs: Present: Normal Breath Sounds Neuro: Present: Alert and responsive, No focal deficits noted Abdomen: Present: Soft, Other (no pulsatile mass appreciated) Vascular: Present: Normal capillary refill, Pulse, normal Skin: Present: No rashes noted on visualized skin Consult Discharge Plan - Plan Referrals: Colopy,Thanh Phan DO [Primary Care Provider] - Manuel Esparza MD [Partnered Physician] -
--- NOTE | 2017-10-07 17:00 | Electrocardiograph Report ---
[place] [id number] Test Date: 2017-10-05 Pat Name: Sreedhar Reina Department: 102 Room: 2A33 Gender: M Claims Sorter: : 1945 Requested By: Natalio Santiago Order Number: [id number] Reading MD: Annette Herrera Measurements Intervals [place] Rate: 67 P: 77 ND: 131 QRS: 81 QRSD: 89 T: 75 QT: 424 QTc: 440 Interpretive Statements SINUS RHYTHM POSSIBLE RIGHT VENTRICULAR CONDUCTION DELAY [RSR (QR) IN V1/V2] Electronically Signed On 10-07-2017 16:58:42 EDT by Annette Herrera
[2017-10-08] MEDS: 0.9 % Sodium Chloride 1,000 ML IVC SCH (02:00)
[2017-10-08 05:59] LABS: Basophils % 0.2 %; Eosinophils # 0.2 K/mcL (0.0-0.6); Eosinophils % 2.1 %; Hematocrit 28.9 % (37.5-50.1); Hemoglobin 10.1 g/dL (12.9-16.9); Immature Granulocytes % 0.2 % (0-4); Mean Corpuscular HGB Conc 34.9 g/dL (31.6-35.5); Mean Corpuscular Hemoglobin 34.5 pg (28.0-33.3); Mean Corpuscular Volume 98.6 fL (83.0-100.0); Mean Platelet Volume 10.8 fL (9.4-12.4); Monocytes # 0.9 K/mcL (0.0-1.3); Monocytes % 10.9 %; Platelet Count 179 K/mcL (140-400); Red Blood Count 2.93 M/mcL (4.19-5.50); Red Cell Distribution Width 13.3 % (11.5-14.5); Segmented Neutrophils % 61.6 %
[2017-10-08 06:14] LABS: BUN/Creatinine Ratio 15 (6-26); Blood Urea Nitrogen 16 mg/dL (8-23); Carbon Dioxide 23 mEq/L (23-29); Chloride 104 mEq/L (98-107); Glucose 90 mg/dL (70-105); Osmolality,Calculated 275 (280-300); Potassium 3.5 mEq/L (3.5-5.1); Sodium 132 mEq/L (136-145); eGFR For African Americans > 60 (> 60); eGFR For Non-African Americans > 60 (> 60)
[2017-10-08] MEDS: *HR* Heparin 5,000 UNIT/ML VIAL SQ SCH (06:34)
[2017-10-08 08:39] VITALS: BP 150/71
[2017-10-08] MEDS ORDERED: 0.9 % Sodium Chloride 1,000 ML IVC ONE (08:40)
--- NOTE | 2017-10-08 08:53 | Discharge Summary ---
- NOTES TO OUTPATIENT PROVIDER Notes to Outpatient Provider: Follow up with PCP in 2-3 days after discharge. Recheck BMP (hyponatremia and MILTON) at that time. Date of Encounter: 10/08/17 Time of Encounter: 08:51 - Discharge Diagnosis (1) Lightheadedness Priority: Primary Status: Resolved (2) Acute kidney failure Priority: Secondary Status: Resolved Qualifiers: Acute renal failure type: unspecified Qualified Code(s): N17.9 - Acute kidney failure, unspecified (3) Hyponatremia Priority: Secondary Status: Acute (4) Hypochloremia Priority: Secondary Status: Resolved (5) Hypertension Priority: Secondary Status: Chronic Qualifiers: Hypertension type: essential hypertension Qualified Code(s): I10 - Essential (primary) hypertension (6) Abdominal pain Priority: Secondary Status: Resolved Qualifiers: Abdominal location: unspecified location Qualified Code(s): R10.9 - Unspecified abdominal pain (7) DVT prophylaxis Priority: Secondary Status: Acute Hospital course: Mr. Reina is a 71 year old white male admitted for abdominal pain, lightheadedness, mild hyponatremia and MILTON. He was admitted to general medical floor for observation. He was started on IV NS. Home medication were resumed. PT/OT were consulted. MRI head showed old ischemic changes, but no acute process. Carotid ultrasound showed 60-79% stenosis of right distal ICA. ECHO showed LVEF 60%, normal LV size and function, normal RV size and function, and no valvular dysfunction. Neurology was consulted due to ataxia and possible TIA. Neurologist did not suscept stroke and felt symptoms were likely due to acute illness, dehydration, and MILTON. Renal function normalized with IVF. Hyponatremia improved. Nausea, vomiting, and abdominal pain resolved. Today, he feels like he is back to baseline. No issue with walking, and no more "lightheadedness." states that he seems to be back to his baseline. Vascular surgery was consulted for right ICA stenosis. MRA head/neck showed 50 % stenosis at right carotid bifurcation. Vascular surgery recommended serial duplexes and follow up in their clinic. Patient will follow up with PCP in 2-3 days after discharge. Patient has met maximum benefit of this hospitalization and will be discharged home in stable condition. Discharge discussed with: patient, family, nurse - Time Spent with Patient Total time spent providing and/or coordinating discharge services: Greater than 30 minutes - Discharge Medications Home Medications: Lisinopril [Zestril] 40 mg PO DAILY 08/16/17 [History] Vit A/Vit C/Vit E/Zinc/Copper [Preservision Areds Tablet] 1 tab PO DAILY [History] Allergies/Adverse Reactions: 3 Allergy/AdvReac Type Severity Reaction Status Date / Time acetaminophen [From Vicodin] AdvReac Nausea Verified 10/05/17 12:56 hydrocodone [From Vicodin] AdvReac Nausea Verified 10/05/17 12:56 rofecoxib [From Vioxx] AdvReac Nausea Verified 10/05/17 12:56 Date of admission: 10/07/17 14:30 Primary care physician: Thanh Phan [place] Consults: Neurology Vascular Surgery Discharging clinician: Sumit Swanson Anticipated date of discharge: 10/08/17 - Constitutional Vitals: Temp Pulse Resp BP Pulse Ox 98.5 F 70 15 150/71 97 10/08/17 08:33 10/08/17 08:33 10/08/17 08:33 10/08/17 08:33 10/08/17 08:33 General appearance: Present: cooperative, A&O X 3, pleasant, no acute distress, answers questions appropriately - Respiratory Respiratory exam: Present: CTAB. Absent: accessory muscle use, rales, rhonchi, wheezes Additional comments: Normal WOB - Cardiovascular Cardiovascular exam: Present: RRR, +S1, +S2. Absent: diastolic murmur, gallop, rubs, systolic murmur Additional comments: No BLE edema - GI/Abdominal GI/Abdominal exam: Present: normal bowel sounds, soft. Absent: distended, hepatomegaly, mass, splenomegaly, tenderness - Neurological Exam Neurological exam: Present: alert, CN II-XII intact, normal gait, oriented X3, no focal deficits, strengths equal and symetr throughout. Absent: pronater drift, facial droop, speech deficit - Psychiatric Psychiatric exam: Present: normal affect, normal mood. Absent: agitated, anxious, depressed - Skin Skin exam: Present: dry, intact, warm. Absent: cyanosis, rash - Patient Status Disposition: Home, Self-Care Condition: Good Functional capacity at discharge: independent ambulation Overall status at discharge: patient is back to baseline - Discharge Instructions Follow Up With: Thanh Babin DO [Primary Care Provider] - Manuel Esparza MD [Partnered Physician] - Additional Instructions: Follow up with PCP in 2-3 days after discharge. Recheck BMP (hyponatremia and MILTON) at that time. - Diet and Activity Activity: resume usual activities as tolerated Diet: low fat, low cholesterol, low salt diet, other (Cardiac Diet)
[2017-10-08] MEDS: Aspirin Enteric Coated 81 MG Tablet PO SCH (09:23)
[2017-10-08] MEDS: Lisinopril 20 MG TABLET PO SCH (09:23)
[2017-10-08] MEDS: Multivit/Ca/Min/Fe/FA 1 TAB TABLET PO SCH (09:24)
--- NOTE | 2017-10-09 10:21 | Electrocardiograph Report ---
[address] [address] Test Date: 2017-10-06 Pat Name: Sreedhar Reina Department: 112 Room: 2A33 Gender: Elevated Work Platform Operator: : [id number] Requested By: [id number] Order Number: [id number] Reading MD: Sofy Ortiz Measurements Intervals [place] Rate: 122 P: MS: 0 QRS: 78 QRSD: 81 T: 57 QT: 299 QTc: 371 Interpretive Statements ATRIAL FIBRILLATION WITH RAPID VENTRICULAR RESPONSE NONSPECIFIC ST & T-WAVE ABNORMALITY ABNORMAL RHYTHM ECG Electronically Signed On 10-09-2017 10:20:10 EDT by Sofy Ortiz
== END 2017-10-08 10:44 | disposition home or self-care (01) | DRG 683 ==
LOC: 3NENU 08:46 → EMEROO 08:46 → 2ANU 13:38
PROVIDERS: ADMIT Student in an Organized Health Care Education/Training Program; ATTEND Student in an Organized Health Care Education/Training Program

== ENCOUNTER 2019-03-31 12:47 | Inpatient (IN) ==
[2019-03-31] MEDS ORDERED: 0.9 % Sodium Chloride 1,000 ML IVC ONE (13:11)
[2019-03-31] MEDS ORDERED: Isovue-370 500 ML BOTTLE IVP ONE (13:12)
[2019-03-31] MEDS ORDERED: Ipratropium/Albuterol Neb 3 ML IH ONE (13:14)
[2019-03-31 13:51] LABS: Calcium 9.7 mg/dL (8.6-10.3); Potassium 3.8 mEq/L (3.5-5.1)
[2019-03-31 13:55] LABS: Basophils % 0.4 %; Eosinophils % 0.3 %; Hematocrit 35.2 % (37.5-50.1); Hemoglobin 11.8 g/dL (12.9-16.9); Immature Granulocytes % 0.5 % (0-4); Lymphocytes # 0.6 K/mcL (0.6-4.6); Lymphocytes % 7.5 %; Mean Corpuscular HGB Conc 33.5 g/dL (31.6-35.5); Mean Corpuscular Hemoglobin 33.7 pg (28.0-33.3); Mean Corpuscular Volume 100.6 fL (83.0-100.0); Mean Platelet Volume 10.2 fL (9.4-12.4); Monocytes # 0.9 K/mcL (0.0-1.3); Monocytes % 11.7 %; Neutrophils # 5.8 K/mcL (1.6-8.9); Platelet Count 266 K/mcL (140-400); Red Cell Distribution Width 15.5 % (11.5-14.5); Segmented Neutrophils % 79.6 %; Troponin I 0.08 ng/mL (< 0.04); White Blood Count 7.3 K/mcL (4.3-11.1)
[2019-03-31] MEDS ORDERED: Aspirin 81 MG TAB.CHEW PO ONE (14:07)
[2019-03-31 14:33] LABS: Bilirubin,Urine Negative (Negative); Blood,Urine Negative (Negative); Clarity,Urine Cloudy (Clear); Color,Urine Yellow (Yellow); Glucose,Urine (UA) Normal (Normal); Ketones,Urine Negative (Negative); Leukocyte Esterase,Urine Negative (Negative); Nitrite,Urine Negative (Negative); PH,Urine 6.5 pH Units (5.0-8.0); Protein,Urine 100 mg/dL (Neg-Trace); Specific Gravity,Urine 1.016 (1.010-1.025); Urobilinogen,Urine Normal (Normal)
[2019-03-31 14:36] LABS: Bacteria,Urine None Seen per hpf (None-Few); Squamous Epithelial Cell,Urine Many per lpf (None-Few)
[2019-03-31] MEDS ORDERED: levoFLOXacin 750 MG/150 ML 750 MG/150 ML BAG IVPB ONE (17:38)
[2019-03-31] MEDS ORDERED: Naloxone 0.4 MG/ML INJ IVP PRN (17:45)
[2019-03-31] MEDS ORDERED: *HR* Heparin 5,000 UNIT/ML VIAL SQ SCH (18:00)
[2019-03-31] MEDS: 0.9 % Sodium Chloride 1,000 ML IVC SCH (18:59)
[2019-03-31] MEDS: Ipratropium/Albuterol Neb 3 ML IH SCH ×2 (20:34→23:01)
[2019-03-31 21:41] LABS: Adenovirus Not Detected (Not Detect); Bordetella Pertussis Not Detected (Not Detect); Chlamydophila pneumoniae Not Detected (Not Detect); Coronavirus 229E Not Detected (Not Detect); Coronavirus HKU1 Not Detected (Not Detect); Coronavirus NL63 Not Detected (Not Detect); Coronavirus OC43 Not Detected (Not Detect); Human Metapneumovirus Not Detected (Not Detect); Human Rhinovirus/Enterovirus Not Detected (Not Detect); Influenza A Subtype 2009 H1 Not Detected (Not Detect); Influenza A Untypeable Not Detected (Not Detect); Influenza B Not Detected (Not Detect); Mycoplasma pneumoniae Not Detected (Not Detect); Parainfluenza Virus 1 Not Detected (Not Detect); Parainfluenza Virus 2 Not Detected (Not Detect); Parainfluenza Virus 3 Not Detected (Not Detect); Parainfluenza Virus 4 Not Detected (Not Detect); Respiratory Syncytial Virus Not Detected (Not Detect)
[2019-03-31] MEDS ORDERED: Budesonide/Formoterol 160/4.5 1 PUFF INH IH SCH (22:00)
[2019-03-31] MEDS ORDERED: *HR* Heparin 5,000 UNIT/ML VIAL IVP PRN (23:31)
[2019-04-01 00:59] LABS: Hematocrit 28.8 % (37.5-50.1); Mean Corpuscular HGB Conc 33.3 g/dL (31.6-35.5); Mean Corpuscular Hemoglobin 33.6 pg (28.0-33.3); Mean Corpuscular Volume 100.7 fL (83.0-100.0); Mean Platelet Volume 10.2 fL (9.4-12.4); Platelet Count 204 K/mcL (140-400); Red Blood Count 2.86 M/mcL (4.19-5.50); Red Cell Distribution Width 15.5 % (11.5-14.5)
[2019-04-01 01:00] LABS: Hemoglobin 9.6 g/dL (12.9-16.9)
[2019-04-01 01:07] LABS: Heparin anti-factor XA UFH 0.05 IU/mL (0.30-0.70)
[2019-04-01 01:08] LABS: INR 1.1; Prothrombin Time 12.3 Seconds (9.4-12.1)
[2019-04-01] MEDS: Heparin 25,000 UNIT/250 ML D5W 25,000 UNIT/250 ML IV.SOLN IVC SCH (01:16)
[2019-04-01 01:18] LABS: Chol/HDL Ratio 3.5 (0-4.9)
[2019-04-01 01:19] LABS: Calcium 8.4 mg/dL (8.6-10.3); Potassium 3.7 mEq/L (3.5-5.1)
[2019-04-01] MEDS: Ipratropium/Albuterol Neb 3 ML IH SCH ×6 (04:02→23:01)
[2019-04-01 04:42] LABS: Basophils % 0.4 %; Eosinophils # 0.1 K/mcL (0.0-0.6); Eosinophils % 1.8 %; Hematocrit 26.5 % (37.5-50.1); Hemoglobin 9.3 g/dL (12.9-16.9); Immature Granulocytes % 0.5 % (0-4); Lymphocytes # 0.8 K/mcL (0.6-4.6); Lymphocytes % 14.7 %; Mean Corpuscular HGB Conc 35.1 g/dL (31.6-35.5); Mean Corpuscular Hemoglobin 33.8 pg (28.0-33.3); Mean Corpuscular Volume 96.4 fL (83.0-100.0); Mean Platelet Volume 10.4 fL (9.4-12.4); Monocytes # 0.9 K/mcL (0.0-1.3); Monocytes % 15.6 %; Neutrophils # 3.8 K/mcL (1.6-8.9); Platelet Count 213 K/mcL (140-400); Red Blood Count 2.75 M/mcL (4.19-5.50); Red Cell Distribution Width 15.5 % (11.5-14.5); White Blood Count 5.6 K/mcL (4.3-11.1)
[2019-04-01 05:40] LABS: Sodium, Urine 40.6 mEq/L
[2019-04-01] MEDS: 0.9 % Sodium Chloride 1,000 ML IVC SCH ×2 (06:35→19:33)
[2019-04-01] MEDS: Budesonide/Formoterol 160/4.5 1 PUFF INH IH SCH ×2 (07:29→19:26)
[2019-04-01 08:17] LABS: Estimated Average Glucose 134 mg/dl
[2019-04-01] MEDS: predniSONE 20 MG TABLET PO SCH (08:24)
[2019-04-01] MEDS: Azithromycin 250 MG TABLET PO SCH (08:24)
[2019-04-01] MEDS: *HR* Heparin 5,000 UNIT/ML VIAL IVP PRN (08:25)
[2019-04-01] MEDS ORDERED: Lisinopril 20 MG TABLET PO SCH (09:00)
[2019-04-01] MEDS: Aspirin Enteric Coated 81 MG Tablet PO SCH (11:01)
[2019-04-02] MEDS: *HR* Heparin 5,000 UNIT/ML VIAL IVP PRN (01:10)
[2019-04-02] MEDS: Ipratropium/Albuterol Neb 3 ML IH SCH ×6 (03:36→23:45)
[2019-04-02 06:19] LABS: Basophils % 0.2 %; Eosinophils % 0.2 %; Hematocrit 25.7 % (37.5-50.1); Hemoglobin 9.2 g/dL (12.9-16.9); Immature Granulocytes % 0.6 % (0-4); Lymphocytes # 0.9 K/mcL (0.6-4.6); Mean Corpuscular HGB Conc 35.8 g/dL (31.6-35.5); Mean Corpuscular Hemoglobin 34.1 pg (28.0-33.3); Mean Corpuscular Volume 95.2 fL (83.0-100.0); Mean Platelet Volume 10.2 fL (9.4-12.4); Monocytes # 0.9 K/mcL (0.0-1.3); Monocytes % 14.9 %; Neutrophils # 4.4 K/mcL (1.6-8.9); Nucleated Red Blood Cells 0.3 /100 WBC (0); Platelet Count 210 K/mcL (140-400); Red Cell Distribution Width 15.5 % (11.5-14.5); Segmented Neutrophils % 70.1 %; White Blood Count 6.3 K/mcL (4.3-11.1)
[2019-04-02 06:38] LABS: BUN/Creatinine Ratio 15 (6-26); Blood Urea Nitrogen 19 mg/dL (8-23); Calcium 8.5 mg/dL (8.6-10.3); Carbon Dioxide 21 mEq/L (23-29); Chloride 105 mEq/L (98-107); Glucose 107 mg/dL (70-105); Osmolality,Calculated 281 (280-300); Potassium 3.9 mEq/L (3.5-5.1); Sodium 134 mEq/L (136-145); eGFR For African Americans > 60 (> 60); eGFR For Non-African Americans 54 (> 60)
[2019-04-02] MEDS: Budesonide/Formoterol 160/4.5 1 PUFF INH IH SCH ×2 (07:37→19:42)
[2019-04-02] MEDS: Heparin 25,000 UNIT/250 ML D5W 25,000 UNIT/250 ML IV.SOLN IVC SCH (07:47)
[2019-04-02] MEDS: Azithromycin 250 MG TABLET PO SCH (07:50)
[2019-04-02] MEDS: predniSONE 20 MG TABLET PO SCH (07:50)
[2019-04-02] MEDS: Aspirin Enteric Coated 81 MG Tablet PO SCH (07:50)
[2019-04-02] MEDS: 0.9 % Sodium Chloride 1,000 ML IVC SCH (07:56)
[2019-04-03] MEDS: Heparin 25,000 UNIT/250 ML D5W 25,000 UNIT/250 ML IV.SOLN IVC SCH (00:18)
[2019-04-03] MEDS: Ipratropium/Albuterol Neb 3 ML IH SCH ×2 (03:34→07:26)
[2019-04-03 04:40] LABS: Basophils % 0.2 %; Eosinophils % 0.3 %; Hematocrit 26.8 % (37.5-50.1); Hemoglobin 9.6 g/dL (12.9-16.9); Immature Granulocytes % 0.3 % (0-4); Lymphocytes % 16.2 %; Mean Corpuscular HGB Conc 35.8 g/dL (31.6-35.5); Mean Corpuscular Hemoglobin 34.5 pg (28.0-33.3); Mean Corpuscular Volume 96.4 fL (83.0-100.0); Mean Platelet Volume 10.3 fL (9.4-12.4); Monocytes # 0.7 K/mcL (0.0-1.3); Monocytes % 11.7 %; Neutrophils # 4.2 K/mcL (1.6-8.9); Platelet Count 215 K/mcL (140-400); Red Blood Count 2.78 M/mcL (4.19-5.50); Red Cell Distribution Width 15.5 % (11.5-14.5); Segmented Neutrophils % 71.3 %; White Blood Count 5.9 K/mcL (4.3-11.1)
[2019-04-03 04:56] LABS: BUN/Creatinine Ratio 13 (6-26); Blood Urea Nitrogen 18 mg/dL (8-23); Calcium 8.7 mg/dL (8.6-10.3); Carbon Dioxide 21 mEq/L (23-29); Chloride 103 mEq/L (98-107); Glucose 91 mg/dL (70-105); Osmolality,Calculated 273 (280-300); Potassium 3.8 mEq/L (3.5-5.1); Sodium 131 mEq/L (136-145); eGFR For African Americans > 60 (> 60); eGFR For Non-African Americans 51 (> 60)
[2019-04-03 06:57] VITALS: BP 194/89
[2019-04-03] MEDS: Azithromycin 250 MG TABLET PO SCH (07:19)
[2019-04-03] MEDS: Aspirin Enteric Coated 81 MG Tablet PO SCH (07:19)
[2019-04-03] MEDS: predniSONE 20 MG TABLET PO SCH (07:19)
[2019-04-03] MEDS: Budesonide/Formoterol 160/4.5 1 PUFF INH IH SCH (07:26)
[2019-04-03] MEDS ORDERED: Lisinopril 20 MG TABLET PO SCH (09:00)
== END 2019-04-03 09:22 | disposition home or self-care (01) | DRG 190 ==
LOC: 2ANU 12:47 → EMEROOARM 12:47 → SUATTDRO 17:51 → 2ANU 18:25 → SUATTDRO 04-02 15:15
PROVIDERS: ADMIT Internal Medicine; ATTEND Family Medicine

== ENCOUNTER 2019-05-21 14:40 | Inpatient (IN) ==
[2019-05-21] MEDS ORDERED: Bumetanide 1 MG/4 ML VIAL IVP ONE (15:16)
[2019-05-21] MEDS ORDERED: Ipratropium/Albuterol Neb 3 ML IH ONE (15:16)
[2019-05-21 15:26] LABS: Basophils % 0.1 %; Hemoglobin 10.5 g/dL (12.9-16.9); Immature Granulocytes % 0.9 % (0-4); Lymphocytes # 0.3 K/mcL (0.6-4.6); Lymphocytes % 2.2 %; Mean Corpuscular Hemoglobin 34.2 pg (28.0-33.3); Mean Corpuscular Volume 97.7 fL (83.0-100.0); Mean Platelet Volume 11.3 fL (9.4-12.4); Monocytes # 0.4 K/mcL (0.0-1.3); Monocytes % 2.4 %; Neutrophils # 13.9 K/mcL (1.6-8.9); Platelet Count 239 K/mcL (140-400); Red Blood Count 3.07 M/mcL (4.19-5.50); Red Cell Distribution Width 15.8 % (11.5-14.5); Segmented Neutrophils % 94.4 %; White Blood Count 14.7 K/mcL (4.3-11.1)
[2019-05-21 15:33] LABS: Activated Partial Thrombo Time 27.9 Seconds (26.0-36.0)
[2019-05-21 15:54] LABS: Albumin 3.4 g/dL (3.5-5.7); Albumin/Globulin Ratio 1.2 (1.1-2.2); Bilirubin,Total 0.7 mg/dL (0.3-1.0); Calcium 8.3 mg/dL (8.6-10.3); Globulin 2.9 g/dL (2.4-3.5); Potassium 4.5 mEq/L (3.5-5.1); Total Protein 6.3 g/dL (6.4-8.9); Troponin I 0.03 ng/mL (< 0.04)
[2019-05-21] MEDS ORDERED: Naloxone 0.4 MG/ML INJ IVP PRN (16:42)
[2019-05-21] MEDS ORDERED: Ondansetron 4 MG/2 ML VIAL IVP PRN (16:42)
[2019-05-21] MEDS ORDERED: Azithromycin 500 MG in 0.9 % Sodium Chloride 250 ML IVPB SCH (17:00)
[2019-05-21] MEDS ORDERED: cefTRIAXone 1,000 MG in 0.9 % Sodium Chloride Mini Bag 100 ML IVPB SCH (17:00)
[2019-05-21] MEDS: Ipratropium/Albuterol Neb 3 ML IH SCH ×2 (19:32→20:07)
[2019-05-21] MEDS: Budesonide/Formoterol 80/4.5 1 PUFF INH IH SCH (20:07)
[2019-05-21] MEDS: methylPREDNISolone 125 MG/2 ML VIAL IVP SCH (20:50)
[2019-05-22] MEDS: Ipratropium/Albuterol Neb 3 ML IH SCH ×7 (00:01→23:49)
[2019-05-22] MEDS: methylPREDNISolone 125 MG/2 ML VIAL IVP SCH ×2 (03:15→08:08)
[2019-05-22 05:05] LABS: Basophils % 0.1 %; Hematocrit 26.2 % (37.5-50.1); Immature Granulocytes % 1.4 % (0-4); Lymphocytes # 0.3 K/mcL (0.6-4.6); Lymphocytes % 1.8 %; Mean Corpuscular Hemoglobin 34.1 pg (28.0-33.3); Mean Corpuscular Volume 100.4 fL (83.0-100.0); Mean Platelet Volume 11.9 fL (9.4-12.4); Monocytes # 0.1 K/mcL (0.0-1.3); Neutrophils # 13.5 K/mcL (1.6-8.9); Platelet Count 179 K/mcL (140-400); Red Blood Count 2.61 M/mcL (4.19-5.50); Red Cell Distribution Width 15.6 % (11.5-14.5); Segmented Neutrophils % 95.7 %; White Blood Count 14.1 K/mcL (4.3-11.1)
[2019-05-22 05:06] LABS: Hemoglobin 8.9 g/dL (12.9-16.9)
[2019-05-22 05:25] LABS: Calcium 7.6 mg/dL (8.6-10.3)
[2019-05-22] MEDS: Budesonide/Formoterol 80/4.5 1 PUFF INH IH SCH ×2 (07:38→19:50)
[2019-05-22] MEDS: Azithromycin 500 MG in 0.9 % Sodium Chloride 250 ML IVPB SCH (08:08)
[2019-05-22] MEDS: Furosemide 40 MG/4 ML VIAL IVP SCH (08:11)
[2019-05-22] MEDS: Aspirin 81 MG TAB.CHEW PO SCH (08:11)
[2019-05-22] MEDS: amLODIPine 5 MG TABLET PO SCH (08:11)
[2019-05-22] MEDS: carvediloL 6.25 MG TABLET PO SCH ×2 (08:11→17:19)
[2019-05-22] MEDS ORDERED: cefTRIAXone 1,000 MG in 0.9 % Sodium Chloride Mini Bag 100 ML IVPB SCH (09:00)
[2019-05-22] MEDS ORDERED: Piperacillin/Tazobactam 3.375 GM in 0.9 % Sodium Chloride Mini Bag 100 ML IVPB SCH (16:00)
[2019-05-22] MEDS: MethylPREDNISolone 40 MG/ML VIAL IVP SCH (17:18)
[2019-05-22] MEDS ORDERED: MethylPREDNISolone 40 MG/ML VIAL IVP SCH (18:00)
[2019-05-22 20:47] LABS: Adenovirus Not Detected (Not Detect); Coronavirus 229E Not Detected (Not Detect); Coronavirus HKU1 Not Detected (Not Detect); Coronavirus NL63 Not Detected (Not Detect); Coronavirus OC43 Not Detected (Not Detect); Human Metapneumovirus Not Detected (Not Detect); Human Rhinovirus/Enterovirus Not Detected (Not Detect)
[2019-05-22 20:48] LABS: Bordetella Pertussis Not Detected (Not Detect); Chlamydophila pneumoniae Not Detected (Not Detect); Influenza A Subtype 2009 H1 Not Detected (Not Detect); Influenza A Untypeable Not Detected (Not Detect); Influenza B Not Detected (Not Detect); Mycoplasma pneumoniae Not Detected (Not Detect); Parainfluenza Virus 1 Not Detected (Not Detect); Parainfluenza Virus 2 Not Detected (Not Detect); Parainfluenza Virus 3 Not Detected (Not Detect); Parainfluenza Virus 4 Not Detected (Not Detect); Respiratory Syncytial Virus Not Detected (Not Detect)
[2019-05-23] MEDS: Ipratropium/Albuterol Neb 3 ML IH SCH ×5 (04:10→20:10)
[2019-05-23] MEDS: MethylPREDNISolone 40 MG/ML VIAL IVP SCH ×2 (05:46→17:33)
[2019-05-23 06:46] LABS: Hematocrit 25.9 % (37.5-50.1); Mean Corpuscular HGB Conc 34.7 g/dL (31.6-35.5); Mean Corpuscular Hemoglobin 34.6 pg (28.0-33.3); Mean Corpuscular Volume 99.6 fL (83.0-100.0); Mean Platelet Volume 11.6 fL (9.4-12.4); Platelet Count 180 K/mcL (140-400); Red Cell Distribution Width 15.9 % (11.5-14.5); White Blood Count 22.2 K/mcL (4.3-11.1)
[2019-05-23] MEDS: Budesonide/Formoterol 80/4.5 1 PUFF INH IH SCH ×2 (07:55→20:10)
[2019-05-23 08:55] LABS: Calcium 8.2 mg/dL (8.6-10.3)
[2019-05-23] MEDS: Furosemide 40 MG/4 ML VIAL IVP SCH (09:28)
[2019-05-23] MEDS: amLODIPine 5 MG TABLET PO SCH (09:28)
[2019-05-23] MEDS: carvediloL 6.25 MG TABLET PO SCH ×2 (09:28→17:33)
[2019-05-23] MEDS: Aspirin 81 MG TAB.CHEW PO SCH (09:28)
[2019-05-23] MEDS: Azithromycin 500 MG in 0.9 % Sodium Chloride 250 ML IVPB SCH (09:28)
[2019-05-23 10:49] LABS: Prothrombin Time 10.9 Seconds (9.4-12.1)
[2019-05-23 11:00] LABS: Albumin 3.1 g/dL (3.5-5.7); Albumin/Globulin Ratio 1.1 (1.1-2.2); Globulin 2.7 g/dL (2.4-3.5); Total Protein 5.8 g/dL (6.4-8.9)
[2019-05-23 12:55] LABS: Appearance of Pleural Fl Clear (Clear)
[2019-05-23 13:10] LABS: RBC,Pleural Fluid 0.002 M/mcL
[2019-05-23 13:43] LABS: Glucose,Pleural Fluid 170 mg/dL (No Ref Range); LDH,Pleural Fluid 103 Units/L (No Ref Range); Total Protein,Pleural Fluid < 3.0 g/dL
[2019-05-23 15:59] LABS: Eosinophils,Pleural Fluid 0 %
[2019-05-23] MEDS ORDERED: Piperacillin/Tazobactam 3.375 GM in 0.9 % Sodium Chloride Mini Bag 100 ML IVPB SCH (16:00)
[2019-05-24] MEDS: Ipratropium/Albuterol Neb 3 ML IH SCH ×6 (00:16→20:23)
[2019-05-24 05:39] LABS: Hematocrit 25.3 % (37.5-50.1); Hemoglobin 8.9 g/dL (12.9-16.9); Mean Corpuscular HGB Conc 35.2 g/dL (31.6-35.5); Mean Corpuscular Hemoglobin 34.2 pg (28.0-33.3); Mean Corpuscular Volume 97.3 fL (83.0-100.0); Platelet Count 185 K/mcL (140-400); Red Cell Distribution Width 15.9 % (11.5-14.5); White Blood Count 19.3 K/mcL (4.3-11.1)
[2019-05-24 05:54] LABS: Calcium 8.2 mg/dL (8.6-10.3); Potassium 4.3 mEq/L (3.5-5.1)
[2019-05-24] MEDS: MethylPREDNISolone 40 MG/ML VIAL IVP SCH ×2 (06:18→17:11)
[2019-05-24] MEDS: Budesonide/Formoterol 80/4.5 1 PUFF INH IH SCH (07:48)
[2019-05-24] MEDS: Furosemide 40 MG/4 ML VIAL IVP SCH (08:57)
[2019-05-24] MEDS: Azithromycin 500 MG in 0.9 % Sodium Chloride 250 ML IVPB SCH (08:57)
[2019-05-24] MEDS: Aspirin 81 MG TAB.CHEW PO SCH (08:58)
[2019-05-24] MEDS: carvediloL 6.25 MG TABLET PO SCH ×2 (08:58→17:11)
[2019-05-24] MEDS: amLODIPine 5 MG TABLET PO SCH (08:58)
[2019-05-24] MEDS ORDERED: *HR* Metoprolol 5 MG/5 ML VIAL IVP ONE ×2 (20:28→20:31)
[2019-05-24 22:29] LABS: Fluid Source for Albumin PLEURAL FLUID
[2019-05-25] MEDS: Budesonide/Formoterol 80/4.5 1 PUFF INH IH SCH ×3 (00:38→20:21)
[2019-05-25] MEDS: Levalbuterol Neb 1.25 MG/3 ML IH SCH ×6 (00:39→20:21)
[2019-05-25 03:43] LABS: ABG Base Excess 4 mEq/L (-2 to 3); ABG HCO3 27 mEq/L (21-27); ABG Oxygen Saturation 97 % (95-98); ABG PCO2 33 mmHg (35-45); ABG PH 7.51 pH Units (7.32-7.45); ABG PO2 77 mmHg (85-104); ABG TCO2 28 mEq/L (20-26)
[2019-05-25] MEDS: MethylPREDNISolone 40 MG/ML VIAL IVP SCH ×2 (05:11→16:32)
[2019-05-25 06:10] LABS: Hematocrit 23.5 % (37.5-50.1); Hemoglobin 7.9 g/dL (12.9-16.9); Mean Corpuscular HGB Conc 33.6 g/dL (31.6-35.5); Mean Corpuscular Hemoglobin 34.3 pg (28.0-33.3); Mean Corpuscular Volume 102.2 fL (83.0-100.0); Mean Platelet Volume 12.3 fL (9.4-12.4); Platelet Count 176 K/mcL (140-400); Red Cell Distribution Width 16.2 % (11.5-14.5); White Blood Count 21.5 K/mcL (4.3-11.1)
[2019-05-25 06:37] LABS: Calcium 7.8 mg/dL (8.6-10.3); Potassium 4.3 mEq/L (3.5-5.1)
[2019-05-25] MEDS: Furosemide 40 MG/4 ML VIAL IVP SCH (07:56)
[2019-05-25] MEDS: Aspirin 81 MG TAB.CHEW PO SCH (07:57)
[2019-05-25] MEDS: carvediloL 6.25 MG TABLET PO SCH ×2 (07:57→16:32)
[2019-05-25] MEDS: amLODIPine 5 MG TABLET PO SCH (07:57)
[2019-05-25 08:02] LABS: ABG Base Excess 3 mEq/L (-2 to 3); ABG HCO3 28 mEq/L (21-27); ABG Oxygen Saturation 96 % (95-98); ABG PCO2 43 mmHg (35-45); ABG PH 7.42 pH Units (7.32-7.45); ABG PO2 80 mmHg (85-104); ABG TCO2 30 mEq/L (20-26)
[2019-05-25] MEDS ORDERED: Azithromycin 250 MG TABLET PO SCH (09:00)
[2019-05-25] MEDS ORDERED: Furosemide 40 MG/4 ML VIAL IVP ONE (11:49)
[2019-05-25] MEDS ORDERED: *HR* Heparin 5,000 UNIT/ML VIAL IVP PRN ×2 (12:01)
[2019-05-25] MEDS ORDERED: Heparin 25,000 UNIT/250 ML D5W 25,000 UNIT/250 ML IV.SOLN IVC SCH (12:15)
[2019-05-25] MEDS ORDERED: *HR* Heparin 5,000 UNIT/ML VIAL SQ SCH (18:00)
[2019-05-26] MEDS: Levalbuterol Neb 1.25 MG/3 ML IH SCH ×7 (00:22→23:59)
[2019-05-26 05:24] LABS: Hematocrit 23.9 % (37.5-50.1); Hemoglobin 8.4 g/dL (12.9-16.9); Mean Corpuscular HGB Conc 35.1 g/dL (31.6-35.5); Mean Corpuscular Hemoglobin 34.4 pg (28.0-33.3); Mean Platelet Volume 11.9 fL (9.4-12.4); Platelet Count 186 K/mcL (140-400); Red Blood Count 2.44 M/mcL (4.19-5.50); Red Cell Distribution Width 16.2 % (11.5-14.5); White Blood Count 19.6 K/mcL (4.3-11.1)
[2019-05-26] MEDS: MethylPREDNISolone 40 MG/ML VIAL IVP SCH ×2 (05:41→16:45)
[2019-05-26 05:45] LABS: Calcium 7.9 mg/dL (8.6-10.3); Potassium 4.3 mEq/L (3.5-5.1)
[2019-05-26] MEDS ORDERED: MethylPREDNISolone 40 MG/ML VIAL IVP ONE (08:40)
[2019-05-26] MEDS: amLODIPine 5 MG TABLET PO SCH (10:08)
[2019-05-26] MEDS: carvediloL 6.25 MG TABLET PO SCH ×2 (10:08→16:45)
[2019-05-26] MEDS: Aspirin 81 MG TAB.CHEW PO SCH (10:09)
[2019-05-26] MEDS: Budesonide/Formoterol 80/4.5 1 PUFF INH IH SCH ×2 (11:16→20:01)
[2019-05-26 12:57] LABS: Prothrombin Time 11.2 Seconds (9.4-12.1)
[2019-05-26 14:43] LABS: Amylase,Pleural Fluid 23 Units/L (No Ref Range); Glucose,Pleural Fluid 132 mg/dL (No Ref Range); LDH,Pleural Fluid 118 Units/L (No Ref Range); Total Protein,Pleural Fluid < 3.0 g/dL
[2019-05-26 14:57] LABS: Appearance of Pleural Fl Hazy (Clear); Basophils,Pleural Fluid 0 %; Eosinophils,Pleural Fluid 0 %; Lymphocytes,Pleural Fluid 0 %
[2019-05-26] MEDS: Albumin 25% 25gram/100mL 25 GM/100 ML IV.SOLN IVPB SCH (16:44)
[2019-05-27 01:43] LABS: Hematocrit 21.7 % (37.5-50.1); Hemoglobin 7.7 g/dL (12.9-16.9); Mean Corpuscular HGB Conc 35.5 g/dL (31.6-35.5); Mean Corpuscular Hemoglobin 34.7 pg (28.0-33.3); Mean Corpuscular Volume 97.7 fL (83.0-100.0); Mean Platelet Volume 12.7 fL (9.4-12.4); Platelet Count 165 K/mcL (140-400); Red Blood Count 2.22 M/mcL (4.19-5.50); Red Cell Distribution Width 15.9 % (11.5-14.5); White Blood Count 16.6 K/mcL (4.3-11.1)
[2019-05-27 02:02] LABS: Calcium 8.2 mg/dL (8.6-10.3); Potassium 3.9 mEq/L (3.5-5.1)
[2019-05-27] MEDS: Levalbuterol Neb 1.25 MG/3 ML IH SCH ×5 (03:54→20:31)
[2019-05-27] MEDS: MethylPREDNISolone 40 MG/ML VIAL IVP SCH ×2 (05:47→17:10)
[2019-05-27] MEDS: Albumin 25% 25gram/100mL 25 GM/100 ML IV.SOLN IVPB SCH ×2 (05:47→17:10)
[2019-05-27] MEDS: Budesonide/Formoterol 80/4.5 1 PUFF INH IH SCH ×2 (07:22→20:35)
[2019-05-27] MEDS: carvediloL 6.25 MG TABLET PO SCH ×2 (08:02→17:10)
[2019-05-27] MEDS: Aspirin 81 MG TAB.CHEW PO SCH (08:02)
[2019-05-27] MEDS: amLODIPine 5 MG TABLET PO SCH (08:03)
[2019-05-27] MEDS ORDERED: Diltiazem CD (24hr) 120 MG CAPSULE PO SCH (11:17)
[2019-05-27] MEDS: *HR* Heparin 5,000 UNIT/ML VIAL SQ SCH (17:10)
[2019-05-27] MEDS: Piperacillin/Tazobactam 3.375 GM in 0.9 % Sodium Chloride Mini Bag 100 ML IVPB SCH (17:47)
[2019-05-27] MEDS ORDERED: Furosemide 40 MG/4 ML VIAL IVP SCH (18:00)
[2019-05-28] MEDS: Levalbuterol Neb 1.25 MG/3 ML IH SCH ×4 (00:02→11:16)
[2019-05-28] MEDS: Piperacillin/Tazobactam 3.375 GM in 0.9 % Sodium Chloride Mini Bag 100 ML IVPB SCH ×2 (00:15→09:30)
[2019-05-28 04:54] LABS: Hematocrit 20.1 % (37.5-50.1); Mean Corpuscular HGB Conc 34.8 g/dL (31.6-35.5); Mean Corpuscular Hemoglobin 35.4 pg (28.0-33.3); Mean Corpuscular Volume 101.5 fL (83.0-100.0); Mean Platelet Volume 12.8 fL (9.4-12.4); Platelet Count 149 K/mcL (140-400); Red Blood Count 1.98 M/mcL (4.19-5.50); Red Cell Distribution Width 16.1 % (11.5-14.5); White Blood Count 19.9 K/mcL (4.3-11.1)
[2019-05-28 05:13] LABS: Magnesium 2.4 mg/dL (1.6-2.6); Potassium 4.2 mEq/L (3.5-5.1)
[2019-05-28] MEDS ORDERED: hydrOXYzine pamoate 25 MG CAPSULE PO ONE (06:00)
[2019-05-28] MEDS: MethylPREDNISolone 40 MG/ML VIAL IVP SCH (06:05)
[2019-05-28] MEDS: *HR* Heparin 5,000 UNIT/ML VIAL SQ SCH (06:05)
[2019-05-28] MEDS: Albumin 25% 25gram/100mL 25 GM/100 ML IV.SOLN IVPB SCH (06:05)
[2019-05-28] MEDS: Budesonide/Formoterol 80/4.5 1 PUFF INH IH SCH (07:19)
[2019-05-28] MEDS ORDERED: *HR* LORazepam 2 MG/ML VIAL IVP ONE (09:25)
[2019-05-28] MEDS: Aspirin 81 MG TAB.CHEW PO SCH (09:26)
[2019-05-28] MEDS: amLODIPine 5 MG TABLET PO SCH (09:26)
[2019-05-28] MEDS: carvediloL 6.25 MG TABLET PO SCH ×2 (09:26→17:40)
[2019-05-28] MEDS ORDERED: Furosemide 40 MG/4 ML VIAL IVP ONE (09:30)
[2019-05-28] MEDS: Diltiazem CD (24hr) 240 MG CAPSULE PO SCH (09:45)
[2019-05-28] MEDS ORDERED: Azithromycin 250 MG TABLET PO SCH (10:00)
[2019-05-28] MEDS ORDERED: 0.9 % Sodium Chloride 250 ML ONE (10:24)
[2019-05-28] MEDS: Acetylcysteine 10% 2 ML INHSOL IH SCH ×2 (11:18→15:06)
[2019-05-28] MEDS ORDERED: *HR* LORazepam 2 MG/ML VIAL IVP PRN (11:38)
[2019-05-28] MEDS ORDERED: *HR* FentaNYL (PF) 100 MCG/2 ML VIAL IVP PRN (11:41)
[2019-05-28] MEDS: *HR* LORazepam Oral Conc 2 MG/ML SL SCH ×2 (12:32→17:40)
[2019-05-28] MEDS ORDERED: Ipratropium/Albuterol Neb 3 ML IH PRN (13:25)
[2019-05-28] MEDS: Furosemide 40 MG/4 ML VIAL IVP SCH (15:36)
[2019-05-28] MEDS: Atropine Sulfate 1% 40 DROP/2 ML BOTTLE SL PRN (19:43)
[2019-05-29] MEDS: *HR* LORazepam Oral Conc 2 MG/ML SL SCH ×2 (00:09→05:59)
[2019-05-29] MEDS ORDERED: Scopolamine Patch 1.5 MG PATCH.TD72 TD SCH (00:45)
[2019-05-29] MEDS: Atropine Sulfate 1% 40 DROP/2 ML BOTTLE SL PRN ×2 (01:33→05:58)
[2019-05-29 05:15] LABS: Kappa Qnt Free Light Chains 1.81 mg/dL (0.33-1.94); Lambda Qnt Free Light Chains 0.71 mg/dL (0.57-2.63)
[2019-05-29 07:08] VITALS: BP 120/70
[2019-05-29] MEDS: Diltiazem CD (24hr) 240 MG CAPSULE PO SCH (07:52)
[2019-05-29] MEDS: Furosemide 40 MG/4 ML VIAL IVP SCH (07:52)
[2019-05-29] MEDS: carvediloL 6.25 MG TABLET PO SCH (07:52)
[2019-05-29] MEDS: amLODIPine 5 MG TABLET PO SCH (07:52)
[2019-05-29] MEDS ORDERED: *HR* FentaNYL (PF) 100 MCG/2 ML VIAL IVP PRN (08:13)
[2019-05-29] MEDS ORDERED: Furosemide 40 MG/4 ML VIAL IVP SCH (09:00)
[2019-05-29] MEDS ORDERED: *HR* LORazepam Oral Conc 2 MG/ML SL SCH (12:00)
[2019-05-30 18:25] LABS: Alpha 2 Globulin (PEP) 0.65 g/dL (0.48-1.05); Beta Globulin (PEP) 0.65 g/dL (0.48-1.10)
[2019-05-30 22:55] LABS: Urine Collection Volume RANDOM mL
[2019-05-31 08:36] LABS: IFE Reflexed IFE Done
[2019-05-31 08:37] LABS: Immunoglobulin A 226 mg/dL (68-408); Immunoglobulin G 396 mg/dL (768-1632); Immunoglobulin M 22 mg/dL (35-263)
[2019-06-01] MEDS ORDERED: Scopolamine Patch 1.5 MG PATCH.TD72 TD SCH (09:00)
== END 2019-05-29 10:19 | disposition hospice, inpatient (51) | DRG 291 ==
LOC: 2ANU 14:40 → EMEROOARM 14:40 → SUATTDRO 16:57 → 2ANU 17:18 → 2NNU 05-25 11:07 → 2ANU 05-28 20:50
PROVIDERS: ADMIT Internal Medicine; ATTEND Internal Medicine

== ENCOUNTER 2019-05-29 09:16 | Inpatient (IN) ==
[2019-05-29] MEDS ORDERED: Haloperidol Oral Conc 10 MG/5 ML UDC PO PRN (09:31)
[2019-05-29] MEDS ORDERED: Ipratropium/Albuterol Neb 3 ML IH PRN (09:35)
[2019-05-29] MEDS ORDERED: Atropine Sulfate 1% 40 DROP/2 ML BOTTLE SL PRN (09:36)
[2019-05-29] MEDS ORDERED: *HR* FentaNYL (PF) 100 MCG/2 ML VIAL IVP PRN ×2 (09:39→11:34)
[2019-05-29] MEDS ORDERED: *HR* LORazepam 2 MG/ML VIAL IVP PRN (09:46)
[2019-05-29] MEDS ORDERED: *HR* LORazepam Oral Conc 2 MG/ML SL SCH (12:00)
[2019-06-01] MEDS ORDERED: Scopolamine Patch 1.5 MG PATCH.TD72 TD SCH (09:00)
== END 2019-05-29 14:35 | disposition expired | DRG 951 ==
LOC: 2ANU 10:31
PROVIDERS: ADMIT Internal Medicine Hospice and Palliative Medicine; ATTEND Internal Medicine Hospice and Palliative Medicine